=== PATIENT | male | born 1975 ===

== ENCOUNTER 2022-12-17 09:08 | Outpatient (AMB) | payer OTHER, SELFPAY ==
--- NOTE | 2022-12-17 09:15 | MHC.PC.OV ---
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 Name: Sammi [id number] Information Interpreted: non-clinical & clinical Accompanied by: Self / Same As Patient Allergies No Known Allergies Allergy (Verified 12/17/22 09:30) Medication List - Last Reconciled 12/17/22 by FLORY Peterson amlodipine 5 mg PO DAILY atenolol 50 mg PO DAILY Tobacco use date assessed: 12/17/22 Dental Screening Dental Screen Date: 12/17/22 Did you have a dental visit in the last 12 months?: No Did you have a dental problem in the last 6 months where you did not have access to dental care?: No Was dental information given to patient?: Patient has dentist HPI HPI Comments History of Present Illness Details 47-year-old Citizen Of [place]-speaking male new patient presents today to establish care. Past medical history significant for hypertension. Patient requesting refills on his amlodipine and atenolol, refill sent to patient's pharmacy. Eye exam: Recommended every couple years, referral entered. Colonoscopy: Referral inter to gastroenterology. [facility], [facility] Surgical History (Updated 12/17/22 @ 09:33 by FLORY Peterson) History of surgery on arm Family History Father Hypertension Mother Hypertension Stroke Social History Housing: House Alcohol intake: current Alcohol intake frequency: a few times a month Alcohol type: beer Patient Tobacco Use Status: Former Tobacco user Tobacco use type: Cigarette e-Cigarette/Vaping Use: Never Used Second Hand Smoke Exposure: No service: No Current occupational status: unemployed Cognitive needs: No Hearing needs: No Vision needs: No Questionnaire PHQ-9 Over the last 2 weeks, how often have you been bothered by any of the following problems? 1. Little interest or pleasure in doing things: not at all 2. Feeling down, depressed, or hopeless: not at all 3. Trouble falling or staying asleep, or sleeping too much: not at all 4. Feeling tired or having little energy: not at all 5. Poor appetite or overeating: not at all 6. Feeling bad about yourself - or that you are a failure or have let yourself or your family down: not at all 7. Trouble concentrating on things, such as reading the newspaper or watching television: not at all 8. Moving or speaking so slowly that other people could have noticed. Or the opposite - being so fidgety or restless that you have been moving around a lot more than usual: not at all 9. Thoughts that you would be better off or of hurting yourself in some way: not at all Total score: 0 Depression Screening Interpretation: Negative 65559 - PHQ-9 Billing: Yes Source: Developed by Drs. Jose Ureña, Narda Gomez, Trell Saez and colleagues, with an educational ramya from [employer]. Thrive Questionnaire Date Thrive assessed: 12/17/22 I am a: Patient What is your living situation today?: I have a steady place to live Within the past 12 months, did the food you bought not last and you didn't have the money to get more?: Never true Within the past 12 months, did you worry whether your food would run out before you got money to buy more?: Never true Do you have trouble paying for medicines?: No Do you have trouble getting transportation to medical appointments?: No Do you have trouble paying your heating and electricity bill?: No Do you have trouble taking care of your child, family member or friend?: No Do you have trouble with day-to-day activities such as bathing, preparing meals, shopping, managing finances, etc.?: No Are you currently unemployed and looking for a job?: No Are you interested in more education?: No Please select the resources that you would like help with: None Currently or been in a relationship where the following occur: no concerns reported AUDIT C Alcohol Use Questionnaire (AUDIT-C) 1. How often do you have a drink containing alcohol?: 2-4 times a month 2. How many drinks containing alcohol do you have on a typical day when you are drinking?: 1 or 2 3. How often do you have six or more drinks on one occasion?: Never Total Score: 2 JUAN-7 AMB Questionnaire JUAN-7 Date JUAN - 7 assessed: 12/17/22 Feeling nervous, anxious, or on edge: 1 = Several days Not being able to stop or control worryin = Not at all Worrying too much about different things: 1 = Several days Trouble relaxin = Not at all Being so restless that it is hard to sit still: 0 = Not at all Becoming easily annoyed or irritable: 1 = Several days Feeling afraid as if something awful might happen: 0 = Not at all Total JUAN-7 score (0-4 normal; 5-9 mild; 10-14 moderate; 15-21 severe): 3 Source: Developed by Drs. Jose Ureña, Narda Gomez, Trell Saez and colleagues, with an educational ramya from [employer]. JUAN-7 Assessment Billing JUAN-7 Assessment Tool: JUAN-7 Assessment 23097 Review of Systems Const Denies chills, Denies fatigue, Denies fever(s) and Denies poor appetite Eyes Denies no additional complaints ENT Reports Normal hearing present Card Denies chest pain, Denies syncope, Denies rapid heart rate and Denies dyspnea Resp Denies cough and Denies dyspnea GI Denies change in stool character, Denies constipation, Denies diarrhea, Denies nausea and Denies vomiting Denies dysuria, Denies urinary frequency and Denies urinary urgency Neuro Reports Normal hearing present, Denies confusion and Denies syncope Psych Denies confusion Endo Denies fatigue Physical exam (Primary Care) Vital Signs: Last Vital Signs Pulse 67 12/17/22 09:18 BP 132/90 H 12/17/22 09:18 Pulse Ox 97 12/17/22 09:18 Oxygen Delivery Method Room Air 12/17/22 09:18 BMI result Body Mass Index 31.0 Tobacco/Smoking Status: Tobacco use Status Tobacco use date assessed 12/17/22 12/17/22 09:21 Patient Tobacco Use Status Former Tobacco user 12/17/22 09:23 Tobacco use type Cigarette 12/17/22 09:23 e-Cigarette/Vaping Use Never Used 12/17/22 09:23 PHQ-9: PHQ-9 Score PHQ-9: Total score 0 12/17/22 12:23 Depression Screening Interpretation: Negative Thrive Assessment: Date of Thrive Assessment Date Thrive assessed 12/17/22 12/17/22 09:26 Currently or been in a relationship where the following occur: no concerns reported Const General: No confusion Orientation/consciousness: No confusion HENMT Head: Yes normocephalic and Yes atraumatic Ears: external ears normal and TM's normal bilaterally General nose exam: Normal external nose present and Normal nasal mucous membranes and turbinates present Face and sinus: Yes normal facial exam and Yes sinuses nontender Mouth: moist mucous membranes Throat: Yes tonsils normal Eyes Conjunctivae: conjunctivae normal Sclerae: sclerae normal Pupils: Equal, round and reactive pupils present and Pupils normal by confrontation EOM: EOMs intact bilaterally Direct Ophthalmoscopy: normal light reflex Neck Neck: Yes no lymphadenopathy and Yes supple Thyroid: Thyroid normal Chest Chest palpation & inspection: normal inspection of the chest Resp Effort & Inspection: normal respiratory effort Auscultation: clear to auscultation bilaterally, no crackles, no rhonchi and no wheezes Cardio Rate: regular rate Rhythm: regular rhythm Peripheral pulses: radial pulses present and dorsalis pedis present GI Inspection: Yes normal to inspection Palpation (GI): Soft to palpation, nontender and No hepatosplenomegaly present Auscultation: normoactive bowel sounds Skin General skin exam: no rashes or lesions noted Neuro General: No confusion Cranial nerves: Yes Equal, round and reactive pupils present and Yes Normal hearing present Cognition (Neuro): normal cognition Gait exam (Neuro): Normal gait present Motor exam (neuro): 5/5 motor strength present throughout Deep tendon reflexes (DTR's): Right brachioradialis reflex intensity grade: 2+, Left brachioradialis reflex intensity grade: 2+, Right patellar reflex intensity grade: 2+ and Left patellar reflex intensity grade: 2+ Extrem General: No edema Assessment and Plan Assessment & Plan (1) Hypertension: Code(s): I10 - Essential (primary) hypertension Plan: Continue on amlodipine and atenolol. Follow low-salt diet and exercise. Blood pressure goal less than 140/90. (2) Physical exam, annual: Code(s): Z00.00 - Encounter for general adult medical examination without abnormal findings Plan: Fasting labs ordered. 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 Plan Follow-up in 3 months. Orders: Orders Comprehensive [place]. Panel Fast Today Z13.1 - Encounter for screening for diabetes mellitus Lipid Panel Today Z13.220 - Encounter for screening for lipoid disorders TSH reflex Free T4 Today Z13.29 - Encounter for screening for other suspected endocrine disorder Complete Blood Count Auto Diff Today Z13.0 - Encounter for screening for diseases of the blood and blood-forming organs and certain disorders involving the immune mechanism Referrals Gastroenterology Referral Z12.11 - Encounter for screening for malignant neoplasm of colon Ophthalmology Referral Z01.00 - Encounter for examination of eyes and vision without abnormal findings Medications: New amlodipine 5 mg PO DAILY 30 tabs 3RF I10 - Essential (primary) hypertension atenolol 50 mg PO DAILY 30 tabs 3RF Coding Level of Care Code New Pt Prev Care 40-64y(99074) Diagnoses Hypertension I10 Physical exam, annual Z00.00 Additional Codes JUAN-7 Assessment Billing - JUAN-7 Assessment Tool: JUAN-7 Assessment 84629 ([id number])
[2022-12-17 09:18] VITALS: BP 132/90; PULSE 67; O2SAT 97; BMI 31.0
== END 2022-12-17 09:48 | disposition home or self-care (01) ==
PROVIDERS: Visit Provider Nurse Practitioner Family
DX: I10 Essential (primary) hypertension (principal); Z00.00 Encounter for general adult medical examination without abnormal findings
CPT/HCPCS: 99386

== ENCOUNTER 2022-12-17 09:50 | Outpatient (REF) | payer OTHER, SELFPAY ==
[2022-12-17 10:12] LABS: MANUAL DIFF FLAG NO
[2022-12-17 11:49] LABS: Basophils Absolute Auto 0.1 X10*3/uL (0.0-0.2); Eosinophils Absolute Auto 0.1 X10*3/uL (0.0-0.4); Eosinophils Percent Auto 1.1 % (0-4); Hematocrit 44.9 % (42.0-52.0); Hemoglobin 14.6 g/dl (14.0-18.0); Imm Gran Abs Auto 0.02 X10*3/uL (0.00-0.03); Imm Gran Pct Auto 0.3 % (0.0-0.4); Lymphocytes Absolute Auto 3.1 X10*3/uL (1.2-4.9); Lymphocytes Percent Auto 41.8 % (20-40); Mean Corpuscular HGB Conc 32.5 g/dl (31.0-36.0); Mean Corpuscular Hemoglobin 27.8 pg (27.0-33.0); Mean Corpuscular Volume 85.4 fL (80.0-98.0); Mean Platelet Volume 10.8 fL (9.4-12.4); Monocytes Absolute Auto 0.8 X10*3/uL (0.1-1.2); Monocytes Percent Auto 10.5 % (2-11); Neutrophils Absolute Auto 3.3 x10*3/uL (2.0-8.3); Neutrophils Percent Auto 45.3 % (45-73); Platelet Count 303 X10*3/uL (160-400); Red Blood Count 5.26 X10*6/uL (4.60-5.80); White Blood Count 7.3 X10*3/uL (4.8-10.8)
[2022-12-17 12:55] LABS: Alanine Aminotransferase 28 U/L (0-40); Albumin Level 4.4 g/dL (3.5-5.0); Alkaline Phosphatase 65 U/L (39-117); Anion Gap 16 (12-20); Aspartate Amino Transferase 24 U/L (5-37); Bilirubin Total 0.4 mg/dL (0.0-1.0); Blood Urea Nitrogen 16 mg/dL (9-16); Calcium 9.3 mg/dL (8.4-10.2); Carbon Dioxide 24 mmol/L (22-29); Chloride 105 mmol/L (96-108); Cholesterol 193 mg/dL; Estimated Glomerular Filt Rate > 60; Glucose Fasting 92 mg/dL (60-99); HDL Cholesterol 53 mg/dL; LDL Cholesterol Calculated 121 mg/dl; Sodium 141 mmol/L (135-145); Total Protein 7.9 g/dL (6.5-8.0); Triglycerides 95 mg/dL
[2022-12-17 13:14] LABS: TSH reflex Free T4 2.41 uIU/mL (0.32-4.0)
== END 2022-12-17 09:51 | disposition home or self-care (01) ==
LOC: HO.LAB 09:50
PROVIDERS: PCP Internal Medicine; Visit Provider Nurse Practitioner Family
DX: Z13.1 Encounter for screening for diabetes mellitus (principal); Z13.0 Encounter for screening for diseases of the blood and blood-forming organs and certain disorders involving the immune mechanism; Z13.220 Encounter for screening for lipoid disorders; Z13.29 Encounter for screening for other suspected endocrine disorder
CPT/HCPCS: 36415; 80053; 80061; 84443; 85025

== ENCOUNTER 2023-02-12 13:04 | Outpatient (AMB) | payer OTHER, SELFPAY ==
--- NOTE | 2023-02-12 13:21 | A.OFFVIS_ITS ---
Intake Vital Signs 02/12/23 13:24 Height 5 ft 6 in Weight 196 lb 3.382 oz BMI 31.7 BP 144/100 H Blood Pressure Location Lt brachial Position Sitting Pulse 78 Intake Visit Reasons: Colonoscopy Screening Intake Note: Elio presents in the office as a colonoscopy screening. CC: He states that he has never had a colonoscopy - he states that he does not have concerns but sometimes he gets a little discomfort in the epigastric region. 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 Patient was sent to us by his PCP.? This is his first colonoscopy screening.? Patient denies any gastrointestinal symptoms in the past or at present.? Denies any personal or family history of gastrointestinal disease, colon polyps, or cancer.? Denies history of difficulty with sedation or anesthesia in the past.? Negative for history of sleep apnea.? Denies any history of cardiac, renal, pulmonary, or hepatic disease.?? No history of infectious? diseases like hepatitis A, B, C, HIV or tuberculosis.? Patient is not on any anticoagulation therapy. PFSH Surgical History History of surgery on arm Family History Father Hypertension Mother Hypertension Stroke Social History Housing: House Alcohol intake: current Alcohol intake frequency: a few times a month Alcohol type: beer Patient Tobacco Use Status: Former Tobacco user Tobacco use type: Cigarette e-Cigarette/Vaping Use: Never Used Second Hand Smoke Exposure: No service: No Current occupational status: unemployed Cognitive needs: No Hearing needs: No Vision needs: No Review of Systems Const Denies weight gain and Denies weight loss ENT Reports no additional complaints, Denies dysphagia and Denies odynophagia Card Reports no additional complaints Resp Reports no additional complaints GI Denies abdominal pain, Denies belching, Denies melena, Denies bloating, Denies change in bowel habits, Denies dysphagia, Denies excessive flatus, Denies dyspepsia, Denies heartburn, Denies diarrhea, Denies loose stools, Denies nausea, Denies odynophagia and Denies vomiting Reports no additional complaints Musc Reports no additional complaints Neuro Reports no additional complaints Psych Reports no additional complaints Endo Reports no additional complaints Physical Exam Vital Signs: Last Vital Signs Pulse 78 02/12/23 13:24 BP 144/100 H 02/12/23 13:24 BMI result Body Mass Index 31.7 Const General: healthy appearing, no acute distress and well developed Nutritional Appearance: obese Orientation/consciousness: patient oriented x3 HEENT Head: Yes normal to inspection, Yes normocephalic and Yes atraumatic Face and sinus: Yes normal facial exam Mouth: Normal oral and palatal mucosa present Throat: Yes posterior oropharynx normal, Yes tonsils normal and Yes uvula midline Eyes General: appearance normal, both eyes and all related structures Neck Neck: Yes normal visual inspection, Yes full ROM and Yes trachea midline Thyroid: Thyroid normal Resp Effort & Inspection: normal respiratory effort, able to speak in complete sentences, no tracheal deviation and symmetric chest movement Auscultation: clear to auscultation bilaterally Cardio Rate: regular rate Heart sounds: S1 normal heart sound present and S2 normal heart sound present GI Inspection: Yes normal to inspection, No distended and Yes obesity Palpation (GI): Soft to palpation, not firm, nontender and No hepatosplenomegaly present Auscultation: normal bowel sounds General: Yes no CVA tenderness Back/Spine/Pelvis Back: no CVA tenderness Skin General skin exam: elasticity normal, turgor normal and dry skin Neuro General: patient oriented x3 Psych Appearance: grossly normal Mental Status: mental status grossly normal Speech and movement: Normal speech and movement present Assessment & Plan Assessment & Plan (1) Screen for colon cancer: Code(s): Z12.11 - Encounter for screening for malignant neoplasm of colon Plan: Patient denies any GI, cardiac or respiratory symptoms.? Denies any issues with anesthesia in the past.? Denies any history of sleep apnea.? No history infectious diseases in the past or present.? Not on any anticoagulation therapy.? No family or personal history of colon cancer or polyps.? Patient denies melena, hematochezia, unintentional weight loss or ribbon like stools.? Discussed at length the pre-procedure,? prep, diet & medications as well as what to expect prior, during and after the procedure.?? Stressed the importance of good bowel prep. ?Recommended the use of Vaseline or Calmoseptine OTC & baby wipes with bowel movements to promote comfort.? ?Patient verbalizes understanding and agrees to plan of care.? She was given the opportunity to ask questions and all questions answered.? We will see her after the procedure.? Coding Level of Care Code New Pt Level 3 (63126) Diagnoses Screen for colon cancer Z12.11 Time Spent (min) 40 Comment 30 minutes spent with patient and additional 10 minutes spent reviewing his records
[2023-02-12 13:24] VITALS: BP 144/100; PULSE 78; BMI 31.7
== END 2023-02-12 14:05 | disposition home or self-care (01) ==
PROVIDERS: PCP Internal Medicine; Visit Provider Nurse Practitioner Family
DX: Z12.11 Encounter for screening for malignant neoplasm of colon (principal); Z01.818 Encounter for other preprocedural examination
CPT/HCPCS: 99203

== ENCOUNTER → 2023-02-12 13:04 | Outpatient (BNVA) | payer OTHER, SELFPAY | PROVIDERS: PCP Internal Medicine; Visit Provider Nurse Practitioner Family ==

== ENCOUNTER 2023-03-14 08:16 | Outpatient (AMB) | payer OTHER, SELFPAY ==
[2023-03-14 08:28] VITALS: BP 122/80; PULSE 84; O2SAT 97; BMI 32.0
--- NOTE | 2023-03-14 08:29 | A.OFFPC_ITS ---
Vital Signs 03/14/23 08:28 Height 5 ft 6 in Weight 198 lb 4 oz BMI 32.0 BP 122/80 Blood Pressure Location Lt brachial Position Sitting Pulse 84 Pulse Source Pulse Oximeter Pulse Oximetry (%) 97 Oxygen Delivery Method Room Air Intake Visit Reasons: Hypertension Insurance Salesman Required: Yes Insurance Salesman Name: [id number] Selena Information Interpreted: non-clinical & clinical Accompanied by: Self / Same As Patient Allergies No Known Allergies Allergy (Verified 03/14/23 08:29) Tobacco use date assessed: 03/14/23 Dental Screening Dental Screen Date: 03/14/23 Did you have a dental visit in the last 12 months?: No Did you have a dental problem in the last 6 months where you did not have access to dental care?: No Was dental information given to patient?: No HPI HPI Comments History of Present Illness Details 47-year-old Yoruba-speaking male kimber cooley presents today to establish care. Past medical history significant for hypertension. Patient blood pressure below goal today 122/80. Patient reports has not yet received to call for ophthalmology appointment, referral updated. Patient reports that he also is experiencing some dysuria and also would like his prostate checked patient made aware that PSA lab was ordered back in December. Patient denies urinary frequency, hesitancy, fevers, chills and flank pain. Patient states he was unaware this, in addition to PSA blood work will add CMP and urinalysis. [facility] Surgical History History of surgery on arm Family History Father Hypertension Mother Hypertension Stroke Social History Housing: House Alcohol intake: current Alcohol intake frequency: a few times a month Alcohol type: beer Patient Tobacco Use Status: Former Tobacco user Tobacco use type: Cigarette e-Cigarette/Vaping Use: Never Used Second Hand Smoke Exposure: No service: No Current occupational status: unemployed Cognitive needs: No Hearing needs: No Vision needs: No Questionnaire PHQ-9 Over the last 2 weeks, how often have you been bothered by any of the following problems? 1. Little interest or pleasure in doing things: not at all 2. Feeling down, depressed, or hopeless: not at all 3. Trouble falling or staying asleep, or sleeping too much: not at all 4. Feeling tired or having little energy: not at all 5. Poor appetite or overeating: not at all 6. Feeling bad about yourself - or that you are a failure or have let yourself or your family down: not at all 7. Trouble concentrating on things, such as reading the newspaper or watching television: not at all 8. Moving or speaking so slowly that other people could have noticed. Or the opposite - being so fidgety or restless that you have been moving around a lot more than usual: not at all 9. Thoughts that you would be better off or of hurting yourself in some way: not at all Total score: 0 Depression Screening Interpretation: Negative Depression Screening Done: Yes 94100 - PHQ-9 Billing: Yes Source: Developed by Drs. Jose Ureña, Narda Gomez, Trell Saez and colleagues, with an educational ramya from [employer]. Thrive Questionnaire Date Thrive assessed: 03/14/23 I am a: Patient What is your living situation today?: I have a steady place to live Within the past 12 months, did the food you bought not last and you didn't have the money to get more?: Never true Within the past 12 months, did you worry whether your food would run out before you got money to buy more?: Never true Do you have trouble paying for medicines?: No Do you have trouble getting transportation to medical appointments?: No Do you have trouble paying your heating and electricity bill?: No Do you have trouble taking care of your child, family member or friend?: No Do you have trouble with day-to-day activities such as bathing, preparing meals, shopping, managing finances, etc.?: No Are you currently unemployed and looking for a job?: No Are you interested in more education?: No Please select the resources that you would like help with: None Currently or been in a relationship where the following occur: no concerns reported AUDIT C Alcohol Use Questionnaire (AUDIT-C) 1. How often do you have a drink containing alcohol?: 2-4 times a month 2. How many drinks containing alcohol do you have on a typical day when you are drinking?: 1 or 2 3. How often do you have six or more drinks on one occasion?: Never Total Score: 2 JUAN-7 AMB Questionnaire JUAN-7 Date JUAN - 7 assessed: 03/14/23 Feeling nervous, anxious, or on edge: 1 = Several days Not being able to stop or control worryin = Not at all Worrying too much about different things: 1 = Several days Trouble relaxin = Not at all Being so restless that it is hard to sit still: 0 = Not at all Becoming easily annoyed or irritable: 1 = Several days Feeling afraid as if something awful might happen: 0 = Not at all Total JUAN-7 score (0-4 normal; 5-9 mild; 10-14 moderate; 15-21 severe): 3 Source: Developed by Drs. Jose Ureña, Narda Gomez, Trell Saez and colleagues, with an educational ramya from [employer]. JUAN-7 Assessment Billing JUAN-7 Assessment Tool: JUAN-7 Assessment 54245 Review of Systems Const Denies chills, Denies fatigue, Denies fever(s) and Denies poor appetite Eyes Denies no additional complaints ENT Reports Normal hearing present Card Denies chest pain, Denies syncope, Denies rapid heart rate and Denies dyspnea Resp Denies cough and Denies dyspnea GI Denies change in stool character, Denies constipation, Denies diarrhea, Denies nausea and Denies vomiting Denies dysuria, Denies urinary frequency and Denies urinary urgency Neuro Reports Normal hearing present, Denies confusion and Denies syncope Psych Denies confusion Endo Denies fatigue Physical exam (Primary Care) Vital Signs: Last Vital Signs Pulse 84 03/14/23 08:28 BP 122/80 03/14/23 08:28 Pulse Ox 97 03/14/23 08:28 Oxygen Delivery Method Room Air 03/14/23 08:28 BMI result Body Mass Index 32.0 Tobacco/Smoking Status: Tobacco use Status Tobacco use date assessed 03/14/23 03/14/23 08:33 Patient Tobacco Use Status Former Tobacco user 03/14/23 08:33 Tobacco use type Cigarette 03/14/23 08:33 e-Cigarette/Vaping Use Never Used 03/14/23 08:33 PHQ-9: PHQ-9 Score PHQ-9: Total score 0 03/14/23 08:42 Depression Screening Interpretation: Negative Thrive Assessment: Date of Thrive Assessment Date Thrive assessed 03/14/23 03/14/23 08:33 Currently or been in a relationship where the following occur: no concerns reported Const General: No confusion Orientation/consciousness: No confusion HENMT Head: Yes normocephalic and Yes atraumatic Eyes Conjunctivae: conjunctivae normal Chest Chest palpation & inspection: normal inspection of the chest Resp Effort & Inspection: normal respiratory effort Auscultation: clear to auscultation bilaterally, no crackles, no rhonchi and no wheezes Cardio Rate: regular rate Rhythm: regular rhythm Heart sounds: S1 normal heart sound present and S2 normal heart sound present GI Inspection: Yes normal to inspection General: Yes no CVA tenderness Back/Spine/Pelvis Back: no CVA tenderness Neuro General: No confusion Cranial nerves: Yes Normal hearing present Extrem General: No edema Office Procedures Flu Questionnaire Does the patient have a severe egg allergy?: No Does the patient have severe life threatening allergies?: No Does the patient have a fever or illness today?: No Has the patient ever had Guillain-[place] Syndrome?: No Has the patient ever had any past reaction to a flu shot?: No Immunizations flu vacc [id number] 6mos up(PF) 60 mcg(15 mcgx4)/0.5 mL IM syringe Performing Provider: FLORY Peterson Performing Location: [facility] Administered by: Hair Gtz on 03/14/23 08:42 Dose Route Admin Location Dispensed Lot Number Expiration Date NDC Head Tennis Coach 0.5 mL IM Left Deltoid 0.5 mL [id number] 11/17/23 74633-318-45 [facility] VIS Given Date VIS Provided VIS Publication Date 03/14/23 Single Vaccine 20 Eligibility Eligibility Date Funding Source Not [facility] Eligible 03/14/23 Private Assessment and Plan Assessment & Plan (1) Hypertension: Code(s): I10 - Essential (primary) hypertension Plan: Continue on amlodipine and atenolol. Follow low-salt diet and exercise. Blood pressure goal less than 140/90. (2) Urinary frequency: Code(s): R35.0 - Frequency of micturition Plan: Urinalysis ordered with reflex culture. Plan Follow-up in 6 months or sooner if needed. Orders: Orders Comprehensive Met. Panel Today R35.0 - Frequency of micturition Influenza [id number] Immunization Today Z23 - Encounter for immunization UA CC w/rflx Micro + Cult Today R35.0 - Frequency of micturition Coding Level of Care Code Est Pt Level 3 (44469) Diagnoses Hypertension I10 Urinary frequency R35.0 Additional Codes JUAN-7 Assessment Billing - JUAN-7 Assessment Tool: JUAN-7 Assessment 16371 ([id number])
== END 2023-03-14 08:50 | disposition home or self-care (01) ==
PROVIDERS: PCP Nurse Practitioner Family; Visit Provider Nurse Practitioner Family
DX: I10 Essential (primary) hypertension (principal); R35.0 Frequency of micturition; Z23 Encounter for immunization
CPT/HCPCS: 90471; 90686; 99213

== ENCOUNTER 2023-03-14 09:03 | Outpatient (REF) | payer OTHER, SELFPAY ==
[2023-03-14 10:06] LABS: Appearance Urine Clear; Color Urine Yellow; Glucose Urine UA Negative (Negative); Leukocyte Esterase Urine Negative (Negative); Nitrite Urine Negative (Negative); Urine Blood Negative (Negative); Urine Ketones Negative (Negative); Urine Protein Trace mg/dL (Neg-Trace)
[2023-03-14 10:39] LABS: Alanine Aminotransferase 26 U/L (0-40); Albumin Level 4.4 g/dL (3.5-5.0); Alkaline Phosphatase 75 U/L (39-117); Anion Gap 11 (12-20); Aspartate Amino Transferase 23 U/L (5-37); Bilirubin Total 0.6 mg/dL (0.0-1.0); Blood Urea Nitrogen 15 mg/dL (9-16); Calcium 9.4 mg/dL (8.4-10.2); Carbon Dioxide 26 mmol/L (22-29); Chloride 107 mmol/L (96-108); Estimated Glomerular Filt Rate > 60; Glucose Random 104 mg/dL (60-115); Potassium 4.4 mmol/L (3.3-5.1); Sodium 140 mmol/L (135-145); Total Protein 8.1 g/dL (6.5-8.0)
[2023-03-14 10:53] LABS: PSA,Total (Free>4and<10) 0.78 ng/mL (0.00-4.00)
== END 2023-03-14 09:04 | disposition home or self-care (01) ==
LOC: HO.LAB 09:03
PROVIDERS: PCP Internal Medicine; Visit Provider Nurse Practitioner Family
DX: Z00.00 Encounter for general adult medical examination without abnormal findings (principal); Z12.5 Encounter for screening for malignant neoplasm of prostate; R35.0 Frequency of micturition
CPT/HCPCS: 36415; 80053; 81003; 84153

== ENCOUNTER 2023-09-13 09:25 | Outpatient (AMB) | payer OTHER, SELFPAY ==
--- NOTE | 2023-09-13 09:30 | MHC.PC.OV ---
Vital Signs 09/13/23 09:32 Height 5 ft 6 in Weight 203 lb 6 oz BMI 32.8 BP 130/78 Blood Pressure Location Lt brachial Position Sitting Pulse 65 Pulse Source Pulse Oximeter Pulse Oximetry (%) 97 Oxygen Delivery Method Room Air Intake Visit Reasons: HTN Follow up Intake Note: Patient is here to follow up on HTN. Retail Department Reset Required: Yes Retail Department Reset Language: Senior Patient Account Representative Name: Zion([id number]) Information Interpreted: non-clinical & clinical [place]: Not Required per policy Accompanied by: Self / Same As Patient Allergies Penicillins Adverse Reaction (Intermediate, Unverified 09/13/23 10:10) pruritus Medication List - Last Reconciled 09/13/23 by Froilan Starkey MD amlodipine 5 mg PO DAILY atenolol 50 mg PO DAILY Tobacco use date assessed: 09/13/23 Dental Screening Dental Screen Date: 09/13/23 Did you have a dental visit in the last 12 months?: No Did you have a dental problem in the last 6 months where you did not have access to dental care?: No Was dental information given to patient?: No HPI HTN Follow up HPI Details 48-year-old obese male with hypertension last seen in February 2023 having also urinary frequency. speaks georgian Angie [id number] take antibiotic PCN for Urine infection??. complains of frequency but 1-2 at night and discussed that this is normal. 20 days ago was told UTI PAtient admits to self diagnosis. [facility] Surgical History (Updated 09/13/23 @ 10:13 by Froilan Starkey MD) History of surgery on arm Family History (Updated 09/13/23 @ 10:15 by Froilan Starkey MD) Father Hypertension Mother Hypertension Stroke Myocardial infarct Paternal Grandfather Stomach cancer Social History (Updated 09/13/23 @ 10:19 by Froilan Starkey MD) Housing: House Alcohol intake: current Alcohol intake frequency: a few times a month Alcohol type: beer Comment: once a month 5 -6 drinks Patient Tobacco Use Status: Former Tobacco user Tobacco use type: Cigarette Years Smoked: stopped 2020 smoked for 11 years 2008- apck a day after 2013 1-2 a day e-Cigarette/Vaping Use: Never Used Second Hand Smoke Exposure: No service: No Current occupational status: unemployed Cognitive needs: No Hearing needs: No Vision needs: No Questionnaire PHQ-9 Over the last 2 weeks, how often have you been bothered by any of the following problems? 1. Little interest or pleasure in doing things: not at all 2. Feeling down, depressed, or hopeless: not at all 3. Trouble falling or staying asleep, or sleeping too much: not at all 4. Feeling tired or having little energy: not at all 5. Poor appetite or overeating: not at all 6. Feeling bad about yourself - or that you are a failure or have let yourself or your family down: not at all 7. Trouble concentrating on things, such as reading the newspaper or watching television: not at all 8. Moving or speaking so slowly that other people could have noticed. Or the opposite - being so fidgety or restless that you have been moving around a lot more than usual: not at all 9. Thoughts that you would be better off or of hurting yourself in some way: not at all Total score: 0 Depression Screening Interpretation: Negative Depression Screening Done: Yes Source: Developed by Drs. Jose Ureña, Narda Gomez, Trell Saez and colleagues, with an educational ramya from [employer]. Thrive Questionnaire Date Thrive assessed: 09/13/23 I am a: Patient What is your living situation today?: I have a steady place to live Within the past 12 months, did the food you bought not last and you didn't have the money to get more?: Never true Within the past 12 months, did you worry whether your food would run out before you got money to buy more?: Never true Do you have trouble paying for medicines?: No Do you have trouble getting transportation to medical appointments?: No Do you have trouble paying your heating and electricity bill?: No Do you have trouble taking care of your child, family member or friend?: No Do you have trouble with day-to-day activities such as bathing, preparing meals, shopping, managing finances, etc.?: No Are you currently unemployed and looking for a job?: No Are you interested in more education?: No Currently or been in a relationship where the following occur: no concerns reported THRIVE Score: 0 AUDIT C Alcohol Use Questionnaire (AUDIT-C) 1. How often do you have a drink containing alcohol?: 2-4 times a month 2. How many drinks containing alcohol do you have on a typical day when you are drinking?: 1 or 2 Total Score: 2 JUAN-7 AMB Questionnaire JUAN-7 Date JUAN - 7 assessed: 09/13/23 Feeling nervous, anxious, or on edge: 0 = Not at all Not being able to stop or control worryin = Not at all Worrying too much about different things: 0 = Not at all Trouble relaxin = Not at all Being so restless that it is hard to sit still: 0 = Not at all Becoming easily annoyed or irritable: 0 = Not at all Feeling afraid as if something awful might happen: 0 = Not at all Total JUAN-7 score (0-4 normal; 5-9 mild; 10-14 moderate; 15-21 severe): 0 Source: Developed by Drs. Jose Ureña, Narda Gomez, Trell Saez and colleagues, with an educational ramya from [employer]. Physical exam (Primary Care) Vital Signs: Last Vital Signs Pulse 65 09/13/23 09:32 BP 130/78 09/13/23 09:32 Pulse Ox 97 09/13/23 09:32 Oxygen Delivery Method Room Air 09/13/23 09:32 BMI result Body Mass Index 32.8 Tobacco/Smoking Status: Tobacco use Status Tobacco use date assessed 09/13/23 09/13/23 09:43 Patient Tobacco Use Status Former Tobacco user 09/13/23 09:43 Tobacco use type Cigarette 09/13/23 09:43 e-Cigarette/Vaping Use Never Used 09/13/23 09:43 PHQ-9: PHQ-9 Score PHQ-9: Total score 0 09/13/23 09:43 Depression Screening Interpretation: Negative Thrive Assessment: Date of Thrive Assessment Date Thrive assessed 09/13/23 09/13/23 09:43 Currently or been in a relationship where the following occur: no concerns reported Const General: alert; No acute distress Eyes Conjunctivae: conjunctivae normal Resp Auscultation: clear to auscultation bilaterally Cardio Rate: regular rate Rhythm: regular rhythm GI Inspection: Yes normal to inspection Extrem General: Yes normal to inspection and No edema Assessment and Plan Assessment & Plan (1) Hypertension: Code(s): I10 - Essential (primary) hypertension Plan: Continue with blood pressure medication. Decrease salt intake and exercise presently on amlodipine 5 mg once a day and atenolol 50 mg once a day (2) Obesity (BMI 30.0-34.9): Code(s): E66.9 - Obesity, unspecified Plan: Diet and exercise (3) Impaired glucose tolerance: Code(s): R73.02 - Impaired glucose tolerance (oral) Plan: Decrease the amount of carbohydrate intake, pasta, bread, rice and potatoes are all sugar and that is aside from all the sweet stuff, remember that fruits are good but they are Sweet also. Medications: Refilled amlodipine 5 mg PO DAILY 90 tabs 1RF I10 - Essential (primary) hypertension atenolol 50 mg PO DAILY 90 tabs 1RF I10 - Essential (primary) hypertension Coding Level of Care Code Est Pt Level 4 (32130) Diagnoses Hypertension I10 Obesity (BMI 30.0-34.9) E66.9 Impaired glucose tolerance R73.02
[2023-09-13 09:32] VITALS: BP 130/78; PULSE 65; O2SAT 97; BMI 32.8
== END 2023-09-13 10:33 | disposition home or self-care (01) ==
PROVIDERS: PCP Internal Medicine; Visit Provider Internal Medicine
DX: I10 Essential (primary) hypertension (principal); E66.9 Obesity, unspecified; R73.02 Impaired glucose tolerance (oral); Z68.32 Body mass index [BMI] 32.0-32.9, adult
CPT/HCPCS: 99214

== ENCOUNTER 2023-09-23 07:20 | Day surgery (SDC) | payer OTHER, SELFPAY ==
[2023-09-19 11:01] VITALS: BMI 32.8
[2023-09-19 11:02] VITALS: BMI 32.8
--- NOTE | 2023-09-20 12:19 | HO.ANESPROP2 ---
Documented by User: Mellisa Stone NP 09/20/23 12:19 HPI - Anesthesia Eval Consult details Narrative: 48yo M for Colonoscopy PMFSH Active Problems Active Problems: All Active Problems Obesity (BMI 30.0-34.9) (Acute) Urinary frequency (Acute) Hypertension (Acute) Past Medical History Medical History HTN (hypertension) Family History Family History Father Hypertension Mother Hypertension Stroke Myocardial infarct Paternal Grandfather Stomach cancer Surgical History Surgical History History of surgery on arm Social History Social History Housing: House Alcohol intake: current Alcohol intake frequency: a few times a month Alcohol type: beer Comment: once a month 5 -6 drinks Patient Tobacco Use Status: Former Tobacco user Tobacco use type: Cigarette Years Smoked: stopped 2020 smoked for 11 years 2008- apck a day after 2013 1-2 a day e-Cigarette/Vaping Use: Never Used Second Hand Smoke Exposure: No Advance Directives: No (unknown) Advance Directives Information Provided: Yes Advance Directives on File: No service: No Current occupational status: unemployed Cognitive needs: No Hearing needs: No Vision needs: No Meds Allergies Allergy/AdvReac Type Severity Reaction Status Date / Time Penicillins AdvReac Intermediate pruritus Verified 09/23/23 07:27 Exam Height,Weight and Vital Signs: Height 5 ft 6 in Weight 92.079 kg Assessment and Plan Assessment Anesthesia Assessment: Chart Reviewed Documented by User: Yanelis Pretty MD 09/23/23 08:28 PMF Past Medical History Medical History HTN (hypertension) Family History Family History Father Hypertension Mother Hypertension Stroke Myocardial infarct Paternal Grandfather Stomach cancer Family history of problems with anesthesia: No Surgical History Surgical History History of surgery on arm History of Problems with Anesthesia: No Social History Social History Housing: House Alcohol intake: current Alcohol intake frequency: a few times a month Alcohol type: beer Comment: once a month 5 -6 drinks Patient Tobacco Use Status: Former Tobacco user Tobacco use type: Cigarette Years Smoked: stopped 2020 smoked for 11 years apck a day after 2013 1-2 a day e-Cigarette/Vaping Use: Never Used Second Hand Smoke Exposure: No Advance Directives: No (unknown) Advance Directives Information Provided: Yes Advance Directives on File: No service: No Current occupational status: unemployed Cognitive needs: No Hearing needs: No Vision needs: No Meds Allergies Allergy/AdvReac Type Severity Reaction Status Date / Time Penicillins AdvReac Intermediate pruritus Verified 09/23/23 07:27 Exam Airway Mallampati Class: III TM Dist: <=3cm Neck ROM: Limited Heart: rrr Lungs: cta Assessment and Plan Assessment Anesthesia Assessment: Anesthesia Plan Discussed Final Anesthetic Review Family History of Problems with Anesthesia: No History of Problems with Anesthesia: No NPO: Yes ASA Class: III Final Preanesthetic Review: No Changes in Pt Med Stat, Meds/Allgs Chart Reviewed, Consent Obtained/Reviewed and Anes Risks/Benef Reviewed Patient Risk: Intermediate Procedure Risk: Low Anesthetic Plan Anesthetic Plan: MAC: Disposition: Standard PACU Documented by User: Melia Jarrett MD 09/23/23 08:30 PMFSH Past Medical History Medical History HTN (hypertension) Family History Family History Father Hypertension Mother Hypertension Stroke Myocardial infarct Paternal Grandfather Stomach cancer Surgical History Surgical History History of surgery on arm Social History Social History Housing: House Alcohol intake: current Alcohol intake frequency: a few times a month Alcohol type: beer Comment: once a month 5 -6 drinks Patient Tobacco Use Status: Former Tobacco user Tobacco use type: Cigarette Years Smoked: stopped 2020 smoked for 11 years 2008- apck a day after 2013 1-2 a day e-Cigarette/Vaping Use: Never Used Second Hand Smoke Exposure: No Advance Directives: No (unknown) Advance Directives Information Provided: Yes Advance Directives on File: No service: No Current occupational status: unemployed Cognitive needs: No Hearing needs: No Vision needs: No Meds Allergies Allergy/AdvReac Type Severity Reaction Status Date / Time Penicillins AdvReac Intermediate pruritus Verified 09/23/23 07:27 Exam Airway Mallampati Class: II TM Dist: >3cm Neck ROM: Full Heart: rrrr
--- NOTE | 2023-09-23 07:09 | MHC.SHP ---
Pre-Procedural Eval Section A - 24 Hr Update-Section A only Date of Service: 09/23/23 The patient is an INPATIENT: No The patient has been examined within 24 hours of the surgical procedure. The History & Physical has been completed within 30 days and I have reviewed it.: No Section B - Complete if H&P > 30 days Chief Complaint: Colon cancer screening Relevant Family History (Specify if Yes): No Relevant Social History: Tobacco Use (Former smoker) Present Medications: see Short Stay Collaborative assessment Medical History: Significant History (Hypertension, obesity) History of Previous Operations: Relevant previous surgery/procedure and date(s) (History of surgery on the arm) Allergies: Allergies Allergy/AdvReac Type Severity Reaction Status Date / Time Penicillins AdvReac Intermediate pruritus Unverified 09/13/23 10:10 Review of Systems Sugical H&P ROS: Negative: Constitution, Cardiovascular, Respiratory and Gastrointestinal Exam Surgical H&P Exam: Normal: Heart, Normal: Lungs, Normal: Extremities and Normal: Abdomen Plan Diagnosis/Plan: Unchanged I have reviewed the history and physical and performed a pertinent physical examination on my patient. No changes have occurred unless specified. Time Spent With Patient Time: Total time managing care of this patient today ____ minutes.
[2023-09-23] MEDS: Lactated Ringers 1,000 ML 100 ML IVCONT (07:42)
[2023-09-23 07:51] VITALS: BP 132/96; PULSE 88; RESP 18; TEMP 36.7; O2SAT 98
[2023-09-23 08:17] VITALS: BMI 32.3
--- NOTE | 2023-09-23 08:33 | HO.OPN-COLON ---
Colonoscopy Operative Note Operative Note Date of Service: 09/23/23 Narrative: COLONOSCOPY TILL CECUM WITH BIOPSIES Pre-op diagnosis: Colon cancer screening (First colonoscopy). Post-op diagnosis:? Colon polyps, Diverticulosis, hemorrhoids Endoscopist:? Ray Barr MD Anesthesia:?MAC Consent: Indications for the procedure and potential complications of bleeding, perforation, reaction to medications and missed diagnosis were discussed with the patient and informed consent was obtained. Instrument: Olympus PCF H 190 L variable stiffness pediatric colonoscope Monitoring: Vital signs and clinical assessment, intermittent blood pressure monitoring, continuous EKG monitoring, Pulse oximetry and Carbon Dioxide monitoring were done throughout the procedure. Please see anesthesia flowsheet. Colon withdrawl time was 23 minutes. Procedure: The patient was placed in the left lateral decubitis position and pre-procedure medications were administered. After a digital rectal examination of the ano-rectum, the video colonoscope was inserted into the rectum and advanced through the colon to the cecum. The colonoscope was slowly withdrawn in a retrograde panoramic fashion and the colon mucosa was carefully examined including a retroflexed view of the rectum. Findings and interventions are described below. Procedure Difficulty: LLQ pressure was applied to intubate the cecum Findings: Terminal Ileum: Not evaluated Cecum: Normal Ascending Colon: Scattered moderate diverticulosis throughout the entire colon Transverse Colon: Two 4-5 mm sessile polyps - removed with a cold biopsy Scattered moderate diverticulosis throughout the entire colon Descending Colon: Scattered moderate diverticulosis throughout the entire colon Sigmoid Colon: Moderate diverticulosis Rectum: Normal Ano-rectum: Moderate internal hemorrhoids Colon preparation: Good after some irrigation. [place] Bowel Preparation Scale Right colon; 2 Transverse colon: 2 Left colon; 2 (0 = Unprepared colon segment with mucosa not seen due to solid stool that cannot be cleared. 1 = Portion of mucosa of the colon segment seen, but other areas of the colon segment not well seen due to staining, residual stool and/or opaque liquid. 2 = Minor amount of residual staining, small fragments of stool and/or opaque liquid, but mucosa of colon segment seen well. 3 = Entire mucosa of colon segment seen well with no residual staining, small fragments of stool or opaque liquid) Impression and Post Procedure Diagnosis: Colonoscopy Findings: Two small polyps were removed Moderate diverticulosis seen in the entire colon Moderate hemorrhoids on retroflexed exam. Plan: Pt has a FU appointment on 10/07/23 with Jennifer Garcia NP Repeat Colonoscopy in 5 years if polyps are adenomatous and 10 year if polyps are hyperplastic. Patient was given a summary of colonoscopy findings with relevant handouts in the discharge area.
[2023-09-23 09:08] VITALS: BP 110/76; PULSE 65; RESP 16; TEMP 36.1; O2SAT 97
[2023-09-23 09:23] VITALS: BP 128/89; PULSE 69; RESP 15; O2SAT 95
[2023-09-23 09:37] VITALS: BP 139/96; PULSE 62; RESP 17; TEMP 36.4; O2SAT 97
== END 2023-09-23 10:11 | disposition home or self-care (01) ==
PROVIDERS: PCP Internal Medicine; Visit Provider Internal Medicine Gastroenterology
PROC: 0DJD8ZZ Inspection of Lower Intestinal Tract, Via Natural or Artificial Opening Endoscopic (ICD-10-PCS; CPT 45378; principal; 2023-09-23 08:30)
DX: Z12.11 Encounter for screening for malignant neoplasm of colon (principal); K63.5 Polyp of colon; K57.30 Diverticulosis of large intestine without perforation or abscess without bleeding; K64.8 Other hemorrhoids; I10 Essential (primary) hypertension
CPT/HCPCS: 45380; 88305; J2704

== ENCOUNTER → 2023-09-23 07:20 | Outpatient (BNV) | payer OTHER, SELFPAY | PROVIDERS: PCP Internal Medicine; Visit Provider Internal Medicine Gastroenterology | DX: Z12.11 Encounter for screening for malignant neoplasm of colon (principal); K63.5 Polyp of colon; K57.90 Diverticulosis of intestine, part unspecified, without perforation or abscess without bleeding; K64.8 Other hemorrhoids | CPT/HCPCS: 45380 ==

== ENCOUNTER 2024-01-29 09:33 | Outpatient (AMB) | payer OTHER, SELFPAY ==
[2024-01-29 09:35] VITALS: BP 122/90; PULSE 61; O2SAT 98; BMI 31.0
--- NOTE | 2024-01-29 09:35 | A.OFFPC_ITS ---
Vital Signs 01/29/24 09:35 Height 5 ft 6 in Weight 192 lb BMI 31.0 BP 122/90 H Blood Pressure Location Lt brachial Position Sitting Pulse 61 Pulse Source Pulse Oximeter Pulse Oximetry (%) 98 Oxygen Delivery Method Room Air Intake Visit Reasons: Annual P.E Library Services Assistant Required: Yes Library Services Assistant Language: Wolof Allergies Penicillins Adverse Reaction (Intermediate, Verified 01/29/24 09:59) pruritus Medication List - Last Reconciled 01/29/24 by Bernadette Jiang PA-C amlodipine 5 mg PO DAILY atenolol 50 mg PO DAILY Tobacco use date assessed: 09/13/23 Dental Screening Dental Screen Date: 09/13/23 Did you have a dental visit in the last 12 months?: No Did you have a dental problem in the last 6 months where you did not have access to dental care?: No HPI Annual P.E HPI Details 48-year-old obese male with hypertension last seen by Dr. Starkey coming in for annual physical. Patient completed colonoscopy 09/24/2023 follow up in 10 years. 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 Patient states he was taking both blood pressure medications however did stopped taking the atenolol as he only had a 30 day supply and has not had it since. He also mentions he has occasional small bumps on the tip of his penis that are painful and last about 1 week before resolving spontaneously for the last 2-3 years. The vesicles do rupture and crusted over and he uses [id number] cream that he buys in the [facility] and is not available in the [place] for treatment. [facility] Medical History HTN (hypertension) Surgical History History of surgery on arm Family History Father Hypertension Mother Hypertension Stroke Myocardial infarct Paternal Grandfather Stomach cancer Social History Housing: House Alcohol intake: current Alcohol intake frequency: a few times a month Alcohol type: beer Comment: once a month 5 -6 drinks Patient Tobacco Use Status: Former Tobacco user Tobacco use type: Cigarette Years Smoked: stopped 2020 smoked for 11 years 2008- apck a day after 2013 1-2 a day e-Cigarette/Vaping Use: Never Used Second Hand Smoke Exposure: No service: No Current occupational status: unemployed Cognitive needs: No Hearing needs: No Vision needs: No Questionnaire PHQ-9 Over the last 2 weeks, how often have you been bothered by any of the following problems? 1. Little interest or pleasure in doing things: not at all 2. Feeling down, depressed, or hopeless: not at all 3. Trouble falling or staying asleep, or sleeping too much: not at all 4. Feeling tired or having little energy: not at all 5. Poor appetite or overeating: not at all 6. Feeling bad about yourself - or that you are a failure or have let yourself or your family down: not at all 7. Trouble concentrating on things, such as reading the newspaper or watching television: not at all 8. Moving or speaking so slowly that other people could have noticed. Or the opposite - being so fidgety or restless that you have been moving around a lot more than usual: not at all 9. Thoughts that you would be better off or of hurting yourself in some way: not at all Total score: 0 Depression Screening Interpretation: Negative Depression Screening Done: Yes Source: Developed by Drs. Jose Ureña, Narda Gomez, Trell Saez and colleagues, with an educational ramya from [employer]. Thrive Questionnaire Date Thrive assessed: 09/13/23 AUDIT C Alcohol Use Questionnaire (AUDIT-C) 1. How often do you have a drink containing alcohol?: 2-4 times a month 2. How many drinks containing alcohol do you have on a typical day when you are drinking?: 1 or 2 3. How often do you have six or more drinks on one occasion?: Never Total Score: 2 JUAN-7 AMB Questionnaire JUAN-7 Date JUAN - 7 assessed: 09/13/23 Feeling nervous, anxious, or on edge: 0 = Not at all Not being able to stop or control worryin = Not at all Worrying too much about different things: 0 = Not at all Trouble relaxin = Not at all Being so restless that it is hard to sit still: 0 = Not at all Becoming easily annoyed or irritable: 0 = Not at all Feeling afraid as if something awful might happen: 0 = Not at all Total JUAN-7 score (0-4 normal; 5-9 mild; 10-14 moderate; 15-21 severe): 0 Source: Developed by Drs. Jose Ureña, Narda Gomez, Trell Saez and colleagues, with an educational ramya from [employer]. JUAN-7 Assessment Billing JUAN-7 Assessment Tool: JUAN-7 Assessment 19133 Review of Systems Const Denies body aches, Denies fatigue, Denies fever(s), Denies frequent falls, Reports headache(s) (occasional) and Denies weakness Eyes Reports no additional complaints and Denies change in vision ENT Denies dysphagia, Denies dizziness, Denies facial pain, Reports headache(s) (occasional), Denies nasal congestion and Denies odynophagia Card Denies chest pain, Denies syncope, Denies irregular heart rhythm, Denies leg edema, Denies lightheadedness and Denies dyspnea Resp Denies cough and Denies dyspnea GI Denies constipation, Denies dysphagia, Denies dyspepsia, Denies diarrhea, Denies nausea, Denies odynophagia and Denies vomiting Reports genital lesions (As per HPI), Denies dysuria, Denies urinary frequency, Denies urinary hesitancy and Denies urinary urgency Musc Denies back pain and Denies myalgias Skin/Breast Details: bump on penis Neuro Denies dizziness, Denies syncope, Denies frequent falls, Reports headache(s) (occasional) and Denies weakness Psych Reports no additional complaints Endo Denies fatigue Physical exam (Primary Care) Vital Signs: Last Vital Signs Pulse 61 01/29/24 09:35 BP 122/90 H 01/29/24 09:35 Pulse Ox 98 01/29/24 09:35 Oxygen Delivery Method Room Air 01/29/24 09:35 BMI result Body Mass Index 31.0 Tobacco/Smoking Status: Tobacco use Status Tobacco use date assessed 09/13/23 01/29/24 09:36 Patient Tobacco Use Status Former Tobacco user 01/29/24 09:36 Tobacco use type Cigarette 01/29/24 09:36 e-Cigarette/Vaping Use Never Used 01/29/24 09:36 PHQ-9: PHQ-9 Score PHQ-9: Total score 0 01/29/24 09:44 Depression Screening Interpretation: Negative Thrive Assessment: Date of Thrive Assessment Date Thrive assessed 09/13/23 01/29/24 09:36 Const General: cooperative, healthy appearing, comfortable and no acute distress Orientation/consciousness: patient oriented x3 HENMT Head: Yes normocephalic Ears: hearing grossly normal bilaterally, external ears normal, TM's normal bilaterally and EAC's normal General nose exam: Normal external nose present Face and sinus: Yes normal facial exam and Yes sinuses nontender Mouth: Normal oral and palatal mucosa present and tongue normal Throat: Yes posterior oropharynx normal Eyes General: appearance normal, both eyes and all related structures Conjunctivae: conjunctivae normal Pupils: Equal, round and reactive pupils present EOM: EOMs intact bilaterally and No Nystagmus present Neck Neck: Yes normal visual inspection, Yes full ROM and Yes no lymphadenopathy Chest Chest palpation & inspection: normal inspection of the chest Resp Effort & Inspection: normal respiratory effort Auscultation: clear to auscultation bilaterally, no crackles, no rales, no rhonchi, no wheezes and breath sounds present Cardio Rate: regular rate Rhythm: regular rhythm Peripheral pulses: radial pulses present and dorsalis pedis present GI Inspection: Yes normal to inspection and No Abdominal wall edema Palpation (GI): Soft to palpation, not firm and nontender Auscultation: normal bowel sounds Rectal Exam - Male: Yes deferred Other: Single bump on tip of penis without redness or pain does not appear to be ves icular General: Yes no CVA tenderness Back/Spine/Pelvis Back: no CVA tenderness Skin General skin exam: no rashes or lesions noted Neuro General: patient oriented x3 Cranial nerves: Yes Equal, round and reactive pupils present, Yes Midline tongue present, Yes Ability to bilaterally elevate shoulders present and No Nystagmus present Gait exam (Neuro): Normal gait present Extrem General: Yes normal to inspection, Yes full ROM, No no pedal edema and No edema Psych Speech and movement: Normal speech and movement present Affect: normal affect Insight: Good insight present (Psych) Judgement: Good judgement present (Psych) Assessment and Plan Assessment & Plan (1) Obesity (BMI 30.0-34.9): Code(s): E66.9 - Obesity, unspecified Plan: Encouraged healthy diet and regular exercise. (2) Hypertension: Code(s): I10 - Essential (primary) hypertension Plan: Continue to take both atenolol and amlodipine as prescribed. Blood pressure mildly elevated in the office today most likely due to lack of atenolol for the last several months. We will follow up in 3 months to review labs and retake blood pressure at that time. Avoid salt intake and encourage healthy diet and regular exercise. (3) Annual physical exam: Code(s): Z00.00 - Encounter for general adult medical examination without abnormal findings Plan: Patient is up-to-date on all recommended routine screenings and vaccinations for his age. Updated blood work ordered today and we will follow up at next appointment. (4) Penile lump: Code(s): N48.89 - Other specified disorders of penis Plan: Based on patient's history the bumps are most consistent with HSV and we will order for blood test to confirm. On exam unclear etiology of the bumps and we will refer to Dermatology in the event HSV is negative. Orders: Orders Complete Blood Count Auto Diff Today Z00.00 - Encounter for general adult medical examination without abnormal findings Lipid Panel Today Z00.00 - Encounter for general adult medical examination without abnormal findings TSH reflex Free T4 Today Z00.00 - Encounter for general adult medical examination without abnormal findings Prostate Specific Antigen Scr Today Z00.00 - Encounter for general adult medical examination without abnormal findings Vitamin B12 and Folate Today Z00.00 - Encounter for general adult medical e xamination without abnormal findings HSV I and II,IHC Today N48.89 - Other specified disorders of penis Comprehensive Met. Panel Today Z00.00 - Encounter for general adult medical examination without abnormal findings Thyroid Stimulating Hormone Today Z00.00 - Encounter for general adult medical examination without abnormal findings Vitamin D 25-OH (D2 and D3) Today Z00.00 - Encounter for general adult medical examination without abnormal findings UA CC w/rflx Micro + Cult Today Z00.00 - Encounter for general adult medical examination without abnormal findings Referrals Dermatology Referral N48.89 - Other specified disorders of penis Medications: Refilled atenolol 50 mg PO DAILY 90 tabs 1RF I10 - Essential (primary) hypertension amlodipine 5 mg PO DAILY 90 tabs 1RF I10 - Essential (primary) hypertension Coding Level of Care Code Est Pt Level 3 (70896) Est Pt Prev Care 40-64y(14625) Diagnoses Obesity (BMI 30.0-34.9) E66.9 Hypertension I10 Annual physical exam Z00.00 Penile lump N48.89 Additional Codes JUAN-7 Assessment Billing - JUAN-7 Assessment Tool: JUAN-7 Assessment 90817 ([id number])
== END 2024-01-29 10:25 | disposition home or self-care (01) ==
LOC: HO.HMGH 09:33
PROVIDERS: PCP Internal Medicine
DX: Z00.00 Encounter for general adult medical examination without abnormal findings (principal); N48.89 Other specified disorders of penis; E66.9 Obesity, unspecified; Z68.31 Body mass index [BMI] 31.0-31.9, adult; I10 Essential (primary) hypertension
CPT/HCPCS: 99213; 99396

== ENCOUNTER 2024-01-29 10:30 | Outpatient (REF) | payer OTHER, SELFPAY ==
[2024-01-29 10:54] LABS: MANUAL DIFF FLAG NO
[2024-01-29 11:38] LABS: Basophils Percent Auto 0.5 % (0-2); Eosinophils Absolute Auto 0.1 X10*3/uL (0.0-0.4); Eosinophils Percent Auto 0.7 % (0-4); Hematocrit 44.5 % (42.0-52.0); Hemoglobin 14.2 g/dl (14.0-18.0); Imm Gran Abs Auto 0.03 X10*3/uL (0.00-0.03); Imm Gran Pct Auto 0.4 % (0.0-0.4); Lymphocytes Absolute Auto 2.6 X10*3/uL (1.2-4.9); Lymphocytes Percent Auto 35.5 % (20-40); Mean Corpuscular HGB Conc 31.9 g/dl (31.0-36.0); Mean Corpuscular Hemoglobin 26.8 pg (27.0-33.0); Mean Platelet Volume 10.8 fL (9.4-12.4); Monocytes Absolute Auto 0.6 X10*3/uL (0.1-1.2); Monocytes Percent Auto 7.5 % (2-11); Neutrophils Absolute Auto 4.1 x10*3/uL (2.0-8.3); Neutrophils Percent Auto 55.4 % (45-73); Platelet Count 280 X10*3/uL (160-400); Red Cell Distribution Width 14.6 % (11.0-16.0); White Blood Count 7.4 X10*3/uL (4.8-10.8)
[2024-01-29 12:37] LABS: Appearance Urine Clear; Color Urine Yellow; Glucose Urine UA Negative (Negative); Leukocyte Esterase Urine Negative (Negative); Nitrite Urine Negative (Negative); PH 6.5 (5.0-9.0); Urine Blood Negative (Negative); Urine Ketones Negative (Negative); Urine Protein Negative (Neg-Trace)
[2024-01-29 12:40] LABS: Alanine Aminotransferase 26 U/L (0-40); Albumin Level 4.5 g/dL (3.5-5.0); Alkaline Phosphatase 73 U/L (39-117); Anion Gap 13 (12-20); Aspartate Amino Transferase 25 U/L (5-37); Bilirubin Total 0.5 mg/dL (0.0-1.0); Blood Urea Nitrogen 13 mg/dL (9-16); Calcium 9.9 mg/dL (8.4-10.2); Carbon Dioxide 28 mmol/L (22-29); Chloride 106 mmol/L (96-108); Cholesterol 180 mg/dL (<200); Estimated Glomerular Filt Rate > 60; Glucose Random 101 mg/dL (60-115); HDL Cholesterol 58 mg/dL (>40); LDL Cholesterol Calculated 107 mg/dL (<100); Potassium 4.8 mmol/L (3.3-5.1); Sodium 142 mmol/L (135-145); Triglycerides 76 mg/dL (<150)
[2024-01-29 12:45] LABS: TSH reflex Free T4 1.78 uIU/mL (0.32-4.0); Thyroid Stimulating Hormone 1.78 uIU/mL (0.32-4.0)
[2024-01-29 12:49] LABS: Prostate Specific Antigen Scr 0.81 ng/mL (<0.05-4.0); Vitamin B12 684 pg/mL (200-900)
[2024-02-03 16:23] LABS: Vitamin D 25-OH, D2 <4 ng/mL; Vitamin D 25-OH, D3 30 ng/mL; Vitamin D 25-OH, Total 30 ng/mL (30-100)
== END 2024-01-29 10:31 | disposition home or self-care (01) ==
LOC: HO.LAB 10:30
DX: Z00.00 Encounter for general adult medical examination without abnormal findings (principal)
CPT/HCPCS: 36415; 80053; 80061; 81003; 82306; 82607; 82746; 84153; 84443; 85025

== ENCOUNTER 2024-07-27 14:03 | Outpatient (AMB) | payer OTHER, SELFPAY ==
[2024-07-27 14:05] VITALS: BP 120/78; PULSE 93; O2SAT 99; BMI 33.3
--- NOTE | 2024-07-27 14:05 | MHC.PC.OV ---
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 complains urinating a lot, states having gases problem with erection. concern on prostate. concern on masses . [facility] Medical History HTN (hypertension) Surgical History History of surgery on arm Family History Father Hypertension Mother Hypertension Stroke Myocardial infarct Paternal Grandfather Stomach cancer Social History Housing: House Alcohol intake: current Alcohol intake frequency: a few times a month Alcohol type: beer Comment: once a month 5 -6 drinks Patient Tobacco Use Status: Former Tobacco user Tobacco use type: Cigarette Years Smoked: stopped 2020 smoked for 11 years 2008- apck a day after 2013 1-2 a day e-Cigarette/Vaping Use: Never Used Second Hand Smoke Exposure: No service: No Current occupational status: unemployed Cognitive needs: No Hearing needs: No Vision needs: No Questionnaire PHQ-9 Over the last 2 weeks, how often have you been bothered by any of the following problems? 1. Little interest or pleasure in doing things: not at all 2. Feeling down, depressed, or hopeless: not at all 3. Trouble falling or staying asleep, or sleeping too much: not at all 4. Feeling tired or having little energy: not at all 5. Poor appetite or overeating: not at all 6. Feeling bad about yourself - or that you are a failure or have let yourself or your family down: not at all 7. Trouble concentrating on things, such as reading the newspaper or watching television: not at all 8. Moving or speaking so slowly that other people could have noticed. Or the opposite - being so fidgety or restless that you have been moving around a lot more than usual: not at all 9. Thoughts that you would be better off or of hurting yourself in some way: not at all Total score: 0 Depression Screening Interpretation: Negative Depression Screening Done: Yes Source: Developed by Drs. Jose Urñea, Narda Gomez, Trell Saez and colleagues, with an educational ramya from [employer]. Thrive Questionnaire Date Thrive assessed: 07/27/24 I am a: Patient What is your living situation today?: I have a steady place to live Within the past 12 months, did the food you bought not last and you didn't have the money to get more?: Never true Within the past 12 months, did you worry whether your food would run out before you got money to buy more?: Never true Do you have trouble paying for medicines?: No Do you have trouble getting transportation to medical appointments?: No Do you have trouble paying your heating and electricity bill?: No Do you have trouble taking care of your child, family member or friend?: No Do you have trouble with day-to-day activities such as bathing, preparing meals, shopping, managing finances, etc.?: No Are you currently unemployed and looking for a job?: No Are you interested in more education?: No Please select the resources that you would like help with: None Currently or been in a relationship where the following occur: No concerns reported THRIVE Score: 0 AUDIT C Alcohol Use Questionnaire (AUDIT-C) 1. How often do you have a drink containing alcohol?: 2-4 times a month 2. How many drinks containing alcohol do you have on a typical day when you are drinking?: 1 or 2 3. How often do you have six or more drinks on one occasion?: Never Total Score: 2 JUAN-7 AMB Questionnaire JUAN-7 Date JUAN - 7 assessed: 07/27/24 Feeling nervous, anxious, or on edge: 0 = Not at all Not being able to stop or control worryin = Not at all Worrying too much about different things: 0 = Not at all Trouble relaxin = Not at all Being so restless that it is hard to sit still: 0 = Not at all Becoming easily annoyed or irritable: 0 = Not at all Feeling afraid as if something awful might happen: 0 = Not at all Total JUAN-7 score (0-4 normal; 5-9 mild; 10-14 moderate; 15-21 severe): 0 Source: Developed by Drs. Jose Ureña, Narda Gomez, Trell Saez and colleagues, with an educational ramya from [employer]. JUAN-7 Assessment Billing JUAN-7 Assessment Tool: JUAN-7 Assessment 01593 Physical exam (Primary Care) Vital Signs: Last Vital Signs Pulse 93 07/27/24 14:05 BP 120/78 07/27/24 14:05 Pulse Ox 99 07/27/24 14:05 Oxygen Delivery Method Room Air 07/27/24 14:05 BMI result Body Mass Index 33.3 Tobacco/Smoking Status: Tobacco use Status Tobacco use date assessed 07/27/24 07/27/24 14:11 Patient Tobacco Use Status Former Tobacco user 07/27/24 14:11 Tobacco use type Cigarette 07/27/24 14:11 e-Cigarette/Vaping Use Never Used 07/27/24 14:11 PHQ-9: PHQ-9 Score PHQ-9: Total score 0 07/27/24 14:26 Depression Screening Interpretation: Negative Thrive Assessment: Date of Thrive Assessment Date Thrive assessed 07/27/24 07/27/24 14:11 Currently or been in a relationship where the following occur: No concerns reported Const General: alert; No acute distress Eyes Conjunctivae: conjunctivae normal Resp Auscultation: clear to auscultation bilaterally Cardio Rate: regular rate Rhythm: regular rhythm GI Inspection: Yes normal to inspection Extrem General: Yes normal to inspection and No edema Coding Level of Care Code Est Pt Level 4 (38924) Diagnoses Obesity (BMI 30.0-34.9) E66.9 Hypertension I10 Impaired fasting blood sugar R73.01 Urinary frequency R35.0 Erectile dysfunction N52.9 Scrotal cyst L72.9 Additional Codes JUAN-7 Assessment Billing - JUAN-7 Assessment Tool: JUAN-7 Assessment 08174 ([id number]) Assessment & Plan Assessment & Plan (1) Obesity (BMI 30.0-34.9): Code(s): E66.9 - Obesity, unspecified Category: Medical Plan: Diet And exercise (2) Hypertension: Code(s): I10 - Essential (primary) hypertension Category: Medical Plan: Continue with blood pressure medication. Decrease salt intake and exercise on amlodipine and atenolol right now (3) Impaired fasting blood sugar: Code(s): R73.01 - Impaired fasting glucose Category: Medical Plan: Decrease the amount of carbohydrate intake, pasta, bread, rice and potatoes are all sugar and that is aside from all the sweet stuff, remember that fruits are good but they are Sweet also. (4) Urinary frequency: Code(s): R35.0 - Frequency of micturition Category: Medical (5) Erectile dysfunction: Code(s): N52.9 - Male erectile dysfunction, unspecified Category: Medical (6) Scrotal cyst: Code(s): L72.9 - Follicular cyst of the skin and subcutaneous tissue, unspecified Category: Medical Plan History of Present Illness The patient is a 48-year-old male presenting for follow-up on hypertension, diabetes, and addressing recent urological and erectile issues. He has a documented history of hypertension, managed with amlodipine and atenolol, and exhibits good blood pressure control. The patient has also been noted to have type 2 diabetes mellitus with a mildly elevated blood glucose level on recent tests. Concerns about urinary dysfunction include increased nocturia, which began a month and a half ago during travel, and occurrences of discomfort and gaseous sensation upon urination. Additionally, erectile dysfunction has been noticed concurrently, marked by difficulty in achieving and sustaining erections. Recently, there is a report of a noticeable firmness in the right testicle, raising concerns about underlying pathology. The patient?s recent lab results are predominantly within normal limits, excluding the noted hyperglycemia, with good renal and liver function and normal lipid profile. Health Maintenance - Amlodipine and atenolol prescribed for hypertension management - Discussion about the necessity for regular physical exams for blood work and follow-up - Plan for an ultrasound to evaluate the bladder and scrotum - Ordering testosterone level assessment and urinalysis - Pending flu vaccination for the current year - Tetanus vaccine discussion; reminder for next administration in 6 years Social History - Previously resided in the [facility] - Recent travel to [place], associated with the onset of urinary symptoms - Reports no current need for medication refills - Denied any prior significant history of sexually transmitted infections Review of Systems - Genitourinary: Reports increased nocturia and difficulties with maintaining erections - Endocrine: Reports mild elevation in blood sugar levels Physical Exam - Genitourinary- Notable firmness observed on the right testicle Results - Labs: Mildly elevated blood glucose - Urinalysis: Pending - Screening: Pending ultrasound of bladder and scrotum - Hormonal: Pending testosterone levels Plan Management of erectile dysfunction includes the initiation of PDE-5 inhibitors, assessing the impact on patient symptoms. Obesity management through dietary modification and surveillance of metabolic parameters, including blood glucose, is essential. An ultrasound investigation of the bladder and scrotum is planned to assess structural aspects, especially given the noted testicular firmness. Regular monitoring of hypertension, with adherence to antihypertensive therapy, remains a focus. Health maintenance includes updating vaccinations and continued monitoring of diabetic control with emphasis on lifestyle modifications. Patient was informed and verbally consented to the use of an ambient scribe for clinic note documentation during this visit. Discussion Notes I informed the patient about the necessity of addressing erectile dysfunction with medications that need to be taken in advance of anticipated sexual activity. The potential impact of antihypertensive medication on erectile function was discussed, and adjustment options considered if warranted by patient response. I communicated that further evaluation of urinary symptoms with an ultrasound, coupled with blood work assessment, is necessary to get a comprehensive understanding of the condition. We reviewed the importance of maintaining controlled blood sugar levels, with additional encouragement on diet and exercise as corrective measures. Consent was obtained for diagnostic testing, and the importance of following scheduled investigations was underscored. I mentioned scheduling considerations for subsequent consultations to ensure integration of care outcomes. Patient Instructions - Continue current medications for hypertension - Take prescribed erectile dysfunction medication 2 hours before sexual activity - Follow up on lab work including glucose levels and testosterone - Schedule ultrasound for bladder and scrotum evaluation - Attend upcoming vaccinations as scheduled - Maintain a balanced diet and regular exercise for weight management - Keep track of any changes in symptoms and inform if there are any exacerbations Orders: Orders Complete Blood Count Auto Diff 6 Months R73.01 - Impaired fasting glucose Hemoglobin A1c 6 Months R73.01 - Impaired fasting glucose Free T4 (Free Thyroxine) 6 Months R73.01 - Impaired fasting glucose Lipid Panel 6 Months E78.00 - Pure hypercholesterolemia, unspecified, R73.01 - Impaired fasting glucose Testosterone, Total Today N52.9 - Male erectile dysfunction, unspecified Hemoglobin A1c Today N52.9 - Male erectile dysfunction, unspecified Comprehensive Met. Panel Today N52.9 - Male erectile dysfunction, unspecified Comprehensive Met. Panel 6 Months R73.01 - Impaired fasting glucose Thyroid Stimulating Hormone 6 Months R73.01 - Impaired fasting glucose Vitamin B12 and Folate 6 Months R73.01 - Impaired fasting glucose UA CC w/rflx Micro + Cult Today N52.9 - Male erectile dysfunction, unspecified, R30.0 - Dysuria US bladder Today R35.0 - Frequency of micturition US scrotum Today L72.9 - Follicular cyst of the skin and subcutaneous tissue, unspecified AMB Hemoglobin A1c Today L72.9 - Follicular cyst of the skin and subcutaneous tissue, unspecified Prostate Specific Antigen Scr Today N52.9 - Male erectile dysfunction, unspecified Medications: New sildenafil administer 30 minutes to 4 hours before activity 50 mg PO DAILY PRN 14 tabs 0RF sexual activity N52.9 - Male erectile dysfunction, unspecified
--- OUTSIDE RECORDS SUMMARY | 2024-07-27 15:59 | XMS_ITS | Encounter Summary ---
Author Organization [employer] [facility] Address [address] [facility] 7[address] [place] [address] Care Team Providers Care Manager In Training Name Role Phone Unavailable Primary Care Provider Unavailabl e Reason for Visit * Reason Comments Med Refill Encounter Details Date Type Department Care Team (Late st Contact Info) Description 07/13/2022 Refill [facility] [address] [place], [place] [phone] Devendra Isaac MD [address] [place] [address] Hypertension, unspecified type Social History Tobacco Use Types Packs/Day Years Used Date Smoking Tobacco: Never Smokeless Tobacco: Never Sex and Gender Information Value Date Recorded Sex Assigned at Male 05/22/2022 11:43 AM EST Legal Sex Male 11:41 AM EST Gender Identity Male 05/22/2022 11:43 AM EST Sexual Orientation Don't know 05/27/2023 10 :52 AM EST documented as of this encounter Plan of Treatment Not on file documented as of this encounter Visit Diagnoses Diagnosis Hypertension, unspecified type documented in this encounter
--- OUTSIDE RECORDS SUMMARY | 2024-07-27 15:59 | XMS_ITS | Clinical Summary ---
Author Organization [email or web address] [facility] Address [address] [facility] 7 [place] [address] Care Team Providers Care Equipment Cleaner And Tester Name Role Phone Unavailable Primary Care Provider Unavailabl e Allergies No known active allergies Medications acetaminophen (Tylenol) 500 MG tabletIndication s:Upper back pain on right side Take 2 tablets (1,000 mg) by mouth every 6 (six) hours if needed for moderate pain or fever for up to 25 doses. 50 tablet 3 Active ibuprofen 400 MG tabletIndication s:Upper back pain on right side Take 1 tablet (400 mg) by mouth every 6 (six) hours if needed for moderate pain or fever for up to 30 doses. 30 tablet 3 Active amLODIPine (Norvasc) 5 MG tabletIndication s:Hypertension, unspecified type TAKE 1 TABLET BY MOUTH EVERY DAY IN THE MORNING 30 tablet 3 3 Active atenolol (Tenormin) 50 MG tabletIndication s:Hypertension, unspecified type TAKE 1 TABLET BY MOUTH EVERY DAY IN THE MORNING 30 tablet 3 3 Active amLODIPine (Norvasc) 5 MG tabletIndication s:Hypertension, unspecified type Take 1 tablet (5 mg) by mouth in the morning. 30 tablet 3 3 Active atenolol (Tenormin) 50 MG tabletIndication s:Hypertension, unspecified type Take 1 tablet (50 mg) by mouth in the morning. 30 tablet 3 3 Active Active Problems No known active problems Social History Tobacco Use Types Packs/Day Years Used Date Smoking Tobacco: Never Smokeless Tobacco: Never Tobacco Cessation:Counseling Given: Not Answered Sex and Gender Information Value Date Recorded Sex Assigned at Male 05/22/2022 11:43 AM EST Legal Sex Male 11:41 AM EST Gender Identity Male 05/22/2022 11:43 AM EST Sexual Orientation Don't know 05/27/2023 10 :52 AM EST Last Filed Vital Signs Vital Sign Reading Time Taken Comments Blood Pressure 126/86 05/22/2022 1:11 PM EST Pulse 64 05/22/2022 1:11 PM EST Temperature 36.7 ??C (98 ??F) 05/22/2022 1:11 PM EST Respiratory Rate 16 05/22/2022 1:11 PM EST Oxygen Saturation 99% 05/22/2022 1:11 PM EST Inhaled Oxygen Concentration - - Weight 86.1 kg (189 lb 12.8 oz) 05/22/2022 1:11 PM EST Height - - Body Mass Index - - Plan of Treatment Health Maintenance Due Date Last Done Comments CT Colonography 1974 Colonoscopy 1974 Colorectal Cancer Screening 1974 Depression Screening 1974 FIT DNA/Cologuard 1974 FIT 1974 FOBT 1974 HIV Screening 1974 Lipid Panel 1974 SDOH Screening 1974 Sigmoidoscopy 1974 Alcohol/Substance Use Screening 1986 Family Planning (PISQ) 1989 Hepatitis C Screening 1992 DTaP/Tdap/Td Vaccines (1 - Tdap) 1993 Hepatitis B Vaccines (1 of 3 - 19+ 3-dose series) 1993 Tobacco Screening 05/22/2023 05/22/2022 COVID-19 Vaccine (1 - 2023-2 5 season) 2024 Influenza Vaccine (#1) 2024 03/14/2023 Zoster Vaccines (1 of 2) 2024 RSV Patients and Pa tients Aged 60 years or older (1 - 1-dose 75+ series) 2049 HIB Vaccines Aged Out No longer eligi ble based on patient's age to complete this topic HPV Vaccines Aged Out No longer eligi ble based on patient's age to complete this topic Hepatitis A Vaccines Aged Out No long er eligible based on patient's age to complete this topic IPV Vaccines Aged Out No longer eligi ble based on patient's age to complete this topic Meningococcal Vaccine Aged Out No tristian dilma eligible based on patient's age to complete this topic Pneumococcal Vaccine: Pediat rics (0 to 5 Years) and At-Risk Patients (6 to 49) Years) Aged Out No longer elig ible based on patient's age to complete this topic RSV under 20 months Aged Out No longe r eligible based on patient's age to complete this topic Rotavirus Vaccines Aged Out No longer eligible based on patient's age to complete this topic Insurance [id number] [place]
== END 2024-07-27 14:53 | disposition home or self-care (01) ==
PROVIDERS: PCP Internal Medicine; Visit Provider Internal Medicine
DX: I10 Essential (primary) hypertension (principal); E66.9 Obesity, unspecified; Z68.33 Body mass index [BMI] 33.0-33.9, adult; R73.01 Impaired fasting glucose; R35.0 Frequency of micturition; N52.9 Male erectile dysfunction, unspecified; L72.9 Follicular cyst of the skin and subcutaneous tissue, unspecified

== ENCOUNTER → 2024-07-27 14:03 | Outpatient (BNVA) | payer OTHER, SELFPAY | PROVIDERS: PCP Internal Medicine; Visit Provider Internal Medicine | DX: E66.9 Obesity, unspecified (principal); Z68.33 Body mass index [BMI] 33.0-33.9, adult; I10 Essential (primary) hypertension; R73.01 Impaired fasting glucose; R35.0 Frequency of micturition; N52.9 Male erectile dysfunction, unspecified; L72.9 Follicular cyst of the skin and subcutaneous tissue, unspecified; Z71.3 Dietary counseling and surveillance | CPT/HCPCS: 96127; 99212 ==

== ENCOUNTER 2024-07-28 09:55 | Outpatient (REF) | payer OTHER, SELFPAY ==
[2024-07-28 11:09] LABS: Estimated Average Glucose 131 mg/dL; Hemoglobin A1c % 6.2 % (<6.0)
[2024-07-28 11:24] LABS: Appearance Urine Clear; Color Urine Yellow; Glucose Urine UA Negative (Negative); Leukocyte Esterase Urine Negative (Negative); Nitrite Urine Negative (Negative); Urine Blood Negative (Negative); Urine Ketones Negative (Negative); Urine Protein Negative (Neg-Trace)
--- OUTSIDE RECORDS SUMMARY | 2024-07-28 11:26 | XMS_ITS | Encounter Summary ---
Author Organization [employer] [facility] Address [address] [facility] 7[address] [place] [address] Care Team Providers Care Sand Conditioner Name Role Phone Unavailable Primary Care Provider Unavailabl e Reason for Visit * Reason Comments Med Refill Encounter Details Date Type Department Care Team (Late st Contact Info) Description 07/13/2022 Refill [facility] [address] [place], [place] [phone] Devendra Isaac MD [address] [place] [address] Hypertension, unspecified type Social History Tobacco Use [...]
--- OUTSIDE RECORDS SUMMARY | 2024-07-28 11:26 | XMS_ITS | Clinical Summary ---
Author Organization [employer] [facility] Address [address] [facility] [address] [place] [address] Care Team Providers Care Foreign Legal Consultant Name Role Phone Unavailable Primary Care Provider [...] patient's age to complete this topic Insurance [id number] [place]
[2024-07-28 12:09] LABS: Prostate Specific Antigen Scr 2.71 ng/mL (<0.05-4.0)
[2024-07-28 12:21] LABS: Albumin Level 4.3 g/dL (3.5-5.0); Alkaline Phosphatase 81 U/L (39-117); Anion Gap 13 (12-20); Aspartate Amino Transferase 30 U/L (5-37); Bilirubin Total 0.5 mg/dL (0.0-1.0); Blood Urea Nitrogen 12 mg/dL (9-16); Calcium 9.5 mg/dL (8.4-10.2); Carbon Dioxide 25 mmol/L (22-29); Chloride 109 mmol/L (96-108); Estimated Glomerular Filt Rate > 60; Glucose Random 98 mg/dL (60-115); Potassium 5.1 mmol/L (3.3-5.1); Sodium 142 mmol/L (135-145); Total Protein 8.6 g/dL (6.5-8.0)
[2024-07-28 12:47] LABS: Alanine Aminotransferase 40 U/L (0-40)
[2024-08-03 23:44] LABS: Testosterone, Total 230 ng/dL (250-1100)
== END 2024-07-28 09:56 | disposition home or self-care (01) ==
LOC: HO.LAB 09:55
PROVIDERS: PCP Internal Medicine; Visit Provider Internal Medicine
DX: N52.9 Male erectile dysfunction, unspecified (principal); R30.0 Dysuria
CPT/HCPCS: 36415; 80053; 81003; 83036; 84153; 84403

== ENCOUNTER 2024-08-13 09:48 | Outpatient (REF) | payer OTHER, SELFPAY ==
[2024-08-13 11:29] LABS: Free T4 (Free Thyroxine) 1.61 ng/dL (0.71-1.85)
[2024-08-14 15:42] LABS: Follicle Stimulating Hormone 6.7 mIU/mL (1.4-12.8); Lutenizing Hormone 2.4 mIU/mL (1.5-9.3); Prolactin 3.4 ng/mL (2.0-18.0)
[2024-08-14 16:54] LABS: Transferrin 265 mg/dL (188-341)
[2024-08-20 15:49] LABS: Cortisol, Free 0.16 mcg/dL
[2024-08-20 20:12] LABS: Testosterone, Free 43.5 pg/mL (35.0-155.0); Testosterone, Total 250 ng/dL (250-1100)
== END 2024-08-13 09:49 | disposition home or self-care (01) ==
LOC: HO.LAB 09:48
PROVIDERS: PCP Internal Medicine; Visit Provider Internal Medicine
DX: R79.89 Other specified abnormal findings of blood chemistry (principal)
CPT/HCPCS: 36415; 82530; 83001; 83002; 84146; 84402; 84403; 84439; 84466

== ENCOUNTER 2024-08-19 11:37 | Outpatient (REF) | payer OTHER, SELFPAY ==
--- NOTE | ~2024-08-19 | US_ITS ---
CLINICAL HISTORY: L72.9 - CYST OF SCROTUM US scrotum with Doppler Comparison: None Technique: Real time sonographic imaging, including color-flow imaging and spectral analysis, was performed by the rabbler. Multiple inbound customer service representative static images were saved for review. Findings: Right testicle normal size and echotexture, 4.8 x 2.2 x 3.1 Cm. Normal color flow and spectral tracing. Left testicle normal size and echotexture, 4.8 x 2.2 x 3.3 cm. Normal color flow and spectral tracing. No significant epididymal abnormalities. No hydroceles or varicoceles. Impression: No significant abnormality. This document has been electronically signed by: Catalino Graham MD on 08/19/2024 19:46:43
--- NOTE | ~2024-08-19 | US_ITS ---
CLINICAL HISTORY: R35.0 - Frequency of micturition US kidneys and bladder Comparison: None Findings: The urinary bladder is unremarkable. Prevoid volume 258 mL. Post void volume 50 to mL. Bilateral ureteral jets visualized. Impression: No significant abnormalities. Ultrasound prostate Comparison: None Findings: Prostate heterogeneous without focal nodule. Prostate measures 3.7 x 3.2 x 4.0 cm. Prostate volume 25 mL. Impression: Heterogeneous prostate without focal nodule This document has been electronically signed by: Catalino Graham MD on 08/19/2024 19:11:41
--- OUTSIDE RECORDS SUMMARY | 2024-08-19 14:11 | XMS_ITS | Clinical Summary ---
Author Organization [employer] [facility] Address [address] [facility] [address] [place] [address] Care Team Providers Care Automatic Pad Making Machine Operator Name Role Phone Unavailable Primary Care Provider [...] season) 2024 Influenza Vaccine (#1) 2024 03/14/2023 Pneumococcal Vaccine: 50+ Ye ars (1 of 1 - PCV) 2024 Zoster Vaccines (1 of 2) 2024 RSV [...] patient's age to complete this topic Insurance [facility] [place]
--- OUTSIDE RECORDS SUMMARY | 2024-08-19 14:11 | XMS_ITS | Encounter Summary ---
Author Organization [employer] [facility] Address [address] [facility] [address] [place] [address] Care Team Providers Care Caregiver Services Home Name Role Phone Unavailable Primary Care Provider Unavailabl e Reason for Visit * Reason Comments Med Refill Encounter Details Date Type Department Care Team (Late st Contact Info) Description 07/13/2022 Refill [facility] [address] [place], [place] [phone] Devendra Isaac MD [address] [place] [address] Hypertension, unspecified type Social History Tobacco Use [...]
== END 2024-08-19 11:38 | disposition home or self-care (01) ==
LOC: HO.US 11:37
PROVIDERS: PCP Internal Medicine; Visit Provider Internal Medicine
DX: R35.0 Frequency of micturition (principal); L72.9 Follicular cyst of the skin and subcutaneous tissue, unspecified
CPT/HCPCS: 76857; 76870

== ENCOUNTER → 2024-08-19 11:39 | Outpatient (BNV) | payer OTHER, SELFPAY | PROVIDERS: PCP Internal Medicine; Visit Provider Radiology Diagnostic Radiology | DX: L72.9 Follicular cyst of the skin and subcutaneous tissue, unspecified (principal); R35.0 Frequency of micturition; N42.89 Other specified disorders of prostate | CPT/HCPCS: 76857; 76870 ==

== ENCOUNTER 2024-10-29 15:08 | Outpatient (AMB) | payer OTHER, SELFPAY ==
--- NOTE | 2024-10-29 15:20 | MHC.PC.OV ---
Vital Signs 10/29/24 15:21 Weight 203 lb 4 oz BP 119/84 Blood Pressure Location Lt brachial Position Sitting Respiration 18 Pulse 84 Pulse Source Pulse Oximeter Pulse Oximetry (%) 94 Oxygen Delivery Method Room Air Intake Visit Reasons: HTN, erectile dysfunction Frame Polisher Required: Yes Frame Polisher Language: Luxembourgish Muck Miner Blasting: Not Required per policy Accompanied by: Self / Same As Patient Allergies Penicillins Adverse Reaction (Intermediate, Verified 10/29/24 15:25) pruritus Medication List - Last Reconciled 10/29/24 by Froilan Starkey MD amlodipine 5 mg PO DAILY atenolol 50 mg PO DAILY sildenafil 50 mg PO DAILY PRN Tobacco use date assessed: 07/27/24 Dental Screening Dental Screen Date: 10/29/24 Did you have a dental visit in the last 12 months?: Yes Did you have a dental problem in the last 6 months where you did not have access to dental care?: No Was dental information given to patient?: Patient has dentist HPI HTN, erectile dysfunction HPI Details jamila [id number] armenian 49-year-old obese male with a history of hypertension impaired glucose tolerance frequency erectile dysfunction coming in for follow-up. Last seen in June and blood workup was done patient is here for follow-up. Ultrasound was done revealing negative results. [facility] Medical History HTN (hypertension) Surgical History History of surgery on arm Family History Father Hypertension Mother Hypertension Stroke Myocardial infarct Paternal Grandfather Stomach cancer Social History Housing: House Alcohol intake: current Alcohol intake frequency: a few times a month Alcohol type: beer Comment: once a month 5 -6 drinks Patient Tobacco Use Status: Former Tobacco user Tobacco use type: Cigarette Years Smoked: stopped 2020 smoked for 11 years 2008- apck a day after 2013 1-2 a day e-Cigarette/Vaping Use: Never Used Second Hand Smoke Exposure: No service: No Current occupational status: unemployed Cognitive needs: No Hearing needs: No Vision needs: No Questionnaire PHQ-9 Over the last 2 weeks, how often have you been bothered by any of the following problems? 1. Little interest or pleasure in doing things: not at all 2. Feeling down, depressed, or hopeless: not at all 3. Trouble falling or staying asleep, or sleeping too much: not at all 4. Feeling tired or having little energy: not at all 5. Poor appetite or overeating: not at all 6. Feeling bad about yourself - or that you are a failure or have let yourself or your family down: not at all 7. Trouble concentrating on things, such as reading the newspaper or watching television: not at all 8. Moving or speaking so slowly that other people could have noticed. Or the opposite - being so fidgety or restless that you have been moving around a lot more than usual: not at all 9. Thoughts that you would be better off or of hurting yourself in some way: not at all Total score: 0 Depression Screening Interpretation: Negative Depression Screening Done: Yes 95861 - PHQ-9 Billing: Yes Source: Developed by Drs. Jose Ureña, Narda Gomez, Trell Saez and colleagues, with an educational ramya from [employer]. Thrive Questionnaire Date Thrive assessed: 10/29/24 I am a: Patient What is your living situation today?: I have a steady place to live Within the past 12 months, did the food you bought not last and you didn't have the money to get more?: I choose not to answer this question Within the past 12 months, did you worry whether your food would run out before you got money to buy more?: I choose not to answer this question Do you have trouble paying for medicines?: No Do you have trouble getting transportation to medical appointments?: No Do you have trouble paying your heating and electricity bill?: No Do you have trouble taking care of your child, family member or friend?: No Do you have trouble with day-to-day activities such as bathing, preparing meals, shopping, managing finances, etc.?: No Are you currently unemployed and looking for a job?: Yes Are you interested in more education?: Yes Please select the resources that you would like help with: None Currently or been in a relationship where the following occur: No concerns reported THRIVE Score: 0 AUDIT C Alcohol Use Questionnaire (AUDIT-C) 1. How often do you have a drink containing alcohol?: Monthly or less 2. How many drinks containing alcohol do you have on a typical day when you are drinking?: 5 or 6 3. How often do you have six or more drinks on one occasion?: Monthly Total Score: 5 JUAN-7 AMB Questionnaire JUAN-7 Date JUAN - 7 assessed: 10/29/24 Feeling nervous, anxious, or on edge: 0 = Not at all Not being able to stop or control worryin = Not at all Worrying too much about different things: 0 = Not at all Trouble relaxin = Not at all Being so restless that it is hard to sit still: 0 = Not at all Becoming easily annoyed or irritable: 0 = Not at all Feeling afraid as if something awful might happen: 0 = Not at all Total JUAN-7 score (0-4 normal; 5-9 mild; 10-14 moderate; 15-21 severe): 0 Source: Developed by Drs. Jose Urñea, Narda Gomez, Trell Saez and colleagues, with an educational ramya from [employer]. JUAN-7 Assessment Billing JAUN-7 Assessment Tool: JUAN-7 Assessment 14425 Physical exam (Primary Care) Vital Signs: Last Vital Signs Pulse 84 10/29/24 15:21 Resp 18 10/29/24 15:21 BP 119/84 10/29/24 15:21 Pulse Ox 94 10/29/24 15:21 Oxygen Delivery Method Room Air 10/29/24 15:21 Tobacco/Smoking Status: Tobacco use Status Tobacco use date assessed 07/27/24 10/29/24 15:25 Patient Tobacco Use Status Former Tobacco user 10/29/24 15:25 Tobacco use type Cigarette 10/29/24 15:25 e-Cigarette/Vaping Use Never Used 10/29/24 15:25 PHQ-9: PHQ-9 Score PHQ-9: Total score 0 10/29/24 16:02 Depression Screening Interpretation: Negative Thrive Assessment: Date of Thrive Assessment Date Thrive assessed 10/29/24 10/29/24 15:25 Currently or been in a relationship where the following occur: No concerns reported Const General: alert; No acute distress Eyes Conjunctivae: conjunctivae normal Resp Auscultation: clear to auscultation bilaterally Cardio Rate: regular rate Rhythm: regular rhythm GI Inspection: Yes normal to inspection Extrem General: Yes normal to inspection and No edema Coding Level of Care Code Est Pt Level 4 (63991) Complex EM visit Add On G2211 Diagnoses Low testosterone R79.89 Impaired fasting blood sugar R73.01 Obesity (BMI 30.0-34.9) E66.9 Primary hypertension I10 Hypertension type: primary hypertension Additional Codes JUAN-7 Assessment Billing - JUAN-7 Assessment Tool: JUAN-7 Assessment 43324 ([id number]) PHQ-9 - 16102 - PHQ-9 Billing: Yes ([id number]) Assessment & Plan Assessment & Plan (1) Low testosterone: Code(s): R79.89 - Other specified abnormal findings of blood chemistry Category: Medical Plan: Patient is tested having low testosterone (2) Impaired fasting blood sugar: Code(s): R73.01 - Impaired fasting glucose Category: Medical Plan: Decrease the amount of carbohydrate intake, pasta, bread, rice and potatoes are all sugar and that is aside from all the sweet stuff, remember that fruits are good but they are Sweet also. (3) Obesity (BMI 30.0-34.9): Code(s): E66.9 - Obesity, unspecified Category: Medical Plan: Diet and exercise (4) Hypertension: Code(s): I10 - Essential (primary) hypertension Category: Medical Qualifiers: Hypertension type: primary hypertension Qualified Code(s): I10 - Essential (primary) hypertension Plan: Continue with blood pressure medication. Decrease salt intake and exercise on amlodipine and atenolol Orders: Orders Comprehensive Met. Panel 3 Months R73.01 - Impaired fasting glucose Hemoglobin A1c 3 Months R73.01 - Impaired fasting glucose Referrals Urology Referral R79.89 - Other specified abnormal findings of blood chemistry Medications: Refilled amlodipine 5 mg PO DAILY 90 tabs 1RF I10 - Essential (primary) hypertension sildenafil administer 30 minutes to 4 hours before activity 50 mg PO DAILY PRN 14 tabs 0RF sexual activity N52.9 - Male erectile dysfunction, unspecified atenolol 50 mg PO DAILY 90 tabs 1RF I10 - Essential (primary) hypertension
[2024-10-29 15:21] VITALS: BP 119/84; PULSE 84; RESP 18; O2SAT 94
--- OUTSIDE RECORDS SUMMARY | 2024-10-29 17:47 | XMS_ITS | Clinical Summary ---
Author Organization [employer] Address [address] [facility] 7 [place] [address] Care Team Providers Care Overlay Plastician Name Role Phone Unavailable Primary Care Provider [...] Panel 1974 SDOH Screening 1974 Sigmoidoscopy 1974 Disability Screening 1974 Alcohol/Substance Use Screening 1986 Family Planning (PISQ) 1989 Hepatitis C Screening 1992 DTaP/Tdap/Td Vaccines (1 - Tdap) 1993 Hepatitis B Vaccines (1 of 3 - 19+ 3-dose series) 1993 Tobacco Screening 05/22/2023 05/22/2022 COVID-19 Vaccine (1 - 2023-2 5 season) 2024 Pneumococcal Vaccine: 50+ Ye ars (1 of 1 - PCV) 2024 Zoster Vaccines (1 of 2) 2024 Influenza Vaccine (Season Ended) 2025 03/14/20 23 RSV Patients and Pa tients Aged 60 [...] patient's age to complete this topic Meningococcal B Vaccine Aged Out No l onger eligible based on patient's age to complete this topic Meningococcal Vaccine Aged Out No tristian dilma eligible based on patient's age to complete this topic RSV under 20 months Aged Out No longe r eligible based on patient's age to complete this topic Rotavirus Vaccines Aged Out No longer eligible based on patient's age to complete this topic Insurance [id number] [place] [facility] [place] Address: [address] [address]
== END 2024-10-29 16:47 | disposition home or self-care (01) ==
LOC: HO.HMCH 15:09
PROVIDERS: PCP Internal Medicine; Visit Provider Internal Medicine
DX: R79.89 Other specified abnormal findings of blood chemistry (principal); R73.01 Impaired fasting glucose; E66.9 Obesity, unspecified; Z68.30 Body mass index [BMI] 30.0-30.9, adult; I10 Essential (primary) hypertension

== ENCOUNTER → 2024-10-29 15:08 | Outpatient (BNVA) | payer OTHER, SELFPAY | PROVIDERS: PCP Internal Medicine; Visit Provider Internal Medicine | DX: I10 Essential (primary) hypertension (principal); N52.9 Male erectile dysfunction, unspecified; R73.01 Impaired fasting glucose; R79.89 Other specified abnormal findings of blood chemistry; E66.9 Obesity, unspecified | CPT/HCPCS: 96127; 99212 ==

== ENCOUNTER 2025-01-11 15:12 | Outpatient (AMB) | payer OTHER, SELFPAY ==
--- NOTE | 2025-01-11 15:39 | A.OFFVIS_ITS ---
Intake Visit Reasons: low testosterone Intake Note: Patient is present for LOW TESTOSTERONE Urology Medication:SILDENAFIL Antibiotic Allergy:PENICILLINS Blood Thinner:NONE TODAY'S PVR:0ML'S Movement Assembly Final Inspector Required: Yes Movement Assembly Final Inspector Services: Movement Assembly Final Inspector Present Movement Assembly Final Inspector Name: Low Hand Cardiopulmonary Physical Therapist: Cardiopulmonary Physical Therapist offered & declined Allergies Penicillins Adverse Reaction (Intermediate, Verified 01/11/25 17:29) pruritus Medication List - Last Reconciled 01/11/25 by KEYANA OliverP- amlodipine 5 mg PO DAILY atenolol 50 mg PO DAILY clotrimazole-betamethasone 1-0.05 % 1 appl topical BID 4 weeks sildenafil 50 mg PO DAILY PRN tadalafil (Cialis) 5 mg PO DAILY 90 days HPI Comments Details: Elio is a 49-year-old Portuguese-speaking male patient of Dr. Starkey. He has a past medical history of hypertension and prediabetes. He presents to the office today as a new patient for low testosterone. In discussion with the patient today he reports having followed up with his PCP in discussing issues with low libido and erectile dysfunction at which time labs were drawn and recommendations were made for urology referral for further assessment evaluation. When asked he does report he is able to obtain an erection however feels maintaining erections are difficult. Labs are as follows: Testosterone: 08/11 230, 08/11 250 Free testosterone: 08/11 43.5 Prolactin: 08/11 3.4 LH: 08/11 2.4 FSH: 08/11 6.7 PSA: 02/10 0.8, 08/11 2.7 We did discussed potential causes of hypogonadism, ED, low libido, and elevation in PSA in 6 months. We did discussed potential causes of these urological conditions and further treatment options. He also reports noting the head of his penis has irritation. In assessment of the patient today the penis is uncircumcised in upon retraction of penile foreskin there is [id number] irritation noted on the gland of the penis no open areas, lesions, and or drainage noted. We did discussed balanitis. We discussed further treatment options and risks and benefits of these treatment options. When asked he denies any bothersome urinary issues. He denies urinary urgency, urinary frequency, incontinence, nocturia, hematuria, dysuria, foul smelling urine, changes to urinary stream, flank pain, fever, and or chills. He is happy with his current voiding parameters. In office urinalysis results reviewed with the patient today. All questions were answered. He otherwise offers no other issues or concerns at this time. [facility] Medical History HTN (hypertension) Surgical History History of surgery on arm Family History Father Hypertension Mother Hypertension Stroke Myocardial infarct Paternal Grandfather Stomach cancer Social History Housing: House Alcohol intake: current Alcohol intake frequency: a few times a month Alcohol type: beer Comment: once a month 5 -6 drinks Patient Tobacco Use Status: Former Tobacco user Tobacco use type: Cigarette Years Smoked: stopped 2020 smoked for 11 years 2008- apck a day after 2013 1-2 a day e-Cigarette/Vaping Use: Never Used Second Hand Smoke Exposure: No service: No Current occupational status: unemployed Cognitive needs: No Hearing needs: No Vision needs: No Review of Systems Const All systems reviewed & are unremarkable except as noted in HPI and below Physical Exam Const General: cooperative, comfortable, no acute distress, well developed, alert and awake Nutritional Appearance: overweight Orientation/consciousness: patient oriented x3 Limitations: language barrier HEENT Head: Yes normal to inspection, Yes normocephalic and Yes atraumatic Ears: hearing grossly normal bilaterally Eyes General: appearance normal, both eyes and all related structures Neck Neck: Yes normal visual inspection and Yes trachea midline Chest Chest palpation & inspection: normal inspection of the chest Resp Effort & Inspection: normal respiratory effort and able to speak in complete sentences Cardio Rate: regular rate GI Inspection: Yes normal to inspection General: Yes no CVA tenderness Back/Spine/Pelvis Back: no CVA tenderness Skin General skin exam: no rashes or lesions noted Neuro General: patient oriented x3 Extrem General: Yes normal to inspection Psych Appearance: grossly normal and well kempt Mental Status: mental status grossly normal Speech and movement: Normal speech and movement present and Clear speech present Affect: normal affect Attitude: cooperative Thought process: Normal thought process present Thought content: Normal thought content present Insight: Fair insight present (Psych) Judgement: Fair judgement present (Psych) Office Procedures Post Void Residual Post Residual Void Post Void Residual (PVR): 0 26585-Euxw Void Residual by ultrasound Results AMB Urinalysis, Automated UA Leukoctes 0 Martita/uL Last Edit by VETO Velasquez on 01/11/25 16:29 UA Nitrite Negative Last Edit by Malena Elizabeth [facility] on 01/11/25 16:29 UA Urobilinogen 0.2 mg/dL Last Edit by Malena Elizabeth [facility] on 01/11/25 16:2 9 UA Protein 30 mg/dL Last Edit by Malena Elizabeth [facility] on 01/11/25 16:29 UA pH 6.0 Last Edit by Malena Elizabeth [facility] on 01/11/25 16:29 UA Blood 10 Tacho/uL Last Edit by Malena Elizabeth [facility] on 01/11/25 16:29 UA Specific [place] 1.025 Last Edit by Malena Elizabeth [facility] on 01/11/25 16: 29 UA Ketone Positive Last Edit by Malena Elizabeth [facility] on 01/11/25 16:29 UA Bilirubin 1 mg/dL Last Edit by Malena Elizabeth [facility] on 01/11/25 16:29 UA Glucose 0 mg/dL Last Edit by Malena Elizabeth [facility] on 01/11/25 16:29 Results Reviewed Results Reviewed: Laboratory Last Values Urine pH (Auto) 6.0 01/11/25 16:28 Specific [place] (Auto) 1.025 01/11/25 16:28 Urine Protein (Auto) 30 mg/dL 01/11/25 16:28 Glucose (UA)(Auto) 0 mg/dL 01/11/25 16:28 Urine Ketones (Auto) Positive 01/11/25 16:28 Urine Blood (Auto) 10 Tacho/uL 01/11/25 16:28 Urine Nitrite (Auto) Negative 01/11/25 16:28 Urine Bilirubin (Auto) 1 mg/dL 01/11/25 16:28 Urine Urobilinogen (Auto) 0.2 mg/dL 01/11/25 16:28 Leukocyte Esterase (Auto) 0 Martita/uL 01/11/25 16:28 Assessment & Plan Assessment & Plan (1) Erectile dysfunction: Code(s): N52.9 - Male erectile dysfunction, unspecified Category: Medical (2) Low testosterone: Code(s): R79.89 - Other specified abnormal findings of blood chemistry Category: Medical (3) Balanitis: Code(s): N48.1 - Balanitis Category: Medical (4) Low libido: Code(s): R68.82 - Decreased libido Category: Medical Plan In office urinalysis results reviewed with the patient today; as noted above. PVR 0 mL Previous labs were reviewed with the patient today; as noted above. We did discussed potential causes of ED, low libido, borderline low testosterone, and balanitis; we discussed further treatment options of these urological conditions and risks and benefits of these treatment options. We discussed lifestyle modifications to assist with these urological conditions. Start Cialis as discussed and prescribed. Start betamethasone-clotrimazole as discussed and prescribed. He currently denies any bothersome urinary issues. He reports be happy with current voiding parameters. We discussed redraw of PSA with no sex the night before, no caffeine morning of, and no heavy lifting 1-2 days prior. Will obtain testosterone in 3 months. Follow-up in 1-3 months with labs to be completed prior; or sooner with any issues, concerns, and or questions. Orders: Orders Prostate Specific Antigen Today N52.9 - Male erectile dysfunction, unspecified AMB Urinalysis Automated Today Z13.9 - Encounter for screening, unspecified Testosterone, Total 3 Months N52.9 - Male erectile dysfunction, unspecified, R79.89 - Other specified abnormal findings of blood chemistry Medications: New tadalafil (Cialis) [id number] [facility] [employer] Member [id number] 5 mg PO DAILY 90 tabs 0RF 90 days clotrimazole-betamethasone 1-0.05 % Apply thin coat 2 times per day 1 appl topical BID 45 grams 0RF 4 weeks N48.1 - Balanitis Patient Instructions: The patient had an opportunity to ask questions regarding the treatment plan. All questions were answered. Physical exam, labs, and imaging were discussed and reviewed in detail. As well as risks, benefits, and discussion of treatment choices. No major barriers to understanding were identified. The patient expressed understanding and agreement with the above treatment plan. The patient was made aware they should contact our office by phone for worsening of their current condition, the appearance of new symptoms, or with any questions or concerns. Compliance is encouraged with any medications and follow up testing that is ordered. It is a privilege to be allowed the opportunity to participate in? your urological care.? Again, if you have any questions or concerns If you have any questions or concerns please do not hesitate to contact me. The office is [phone]. This note is constructed using voice recognition software. While every effort has been made to ensure accuracy biometry teacher errors may have been included. Yours sincerely, AICHA Oliver Coding Level of Care Code New Pt Level 4 (22430) Diagnoses Erectile dysfunction N52.9 Low testosterone R79.89 Balanitis N48.1 Low libido R68.82 CPT Codes Post Residual Void - PVR CPT Code: 48375-[id number] Void Residual by ultrasound ([id number])
--- OUTSIDE RECORDS SUMMARY | 2025-01-11 16:51 | XMS_ITS | Clinical Summary ---
Author Organization [employer] Address [address] [place] [address] Care Team Providers Care Director Of Education And Training Name Role Phone Unavailable Primary Care [...] 63 05/22/2022 1:11 PM EST Temperature 36.7 C (98 F) 05/22/2022 1:11 PM EST Respiratory Rate 16 [...] Vaccines (1 of 2) 2024 Influenza Vaccine (#1) 2025 03/14/2023 RSV Patients and Pa tients Aged 60 [...] patient's age to complete this topic Insurance [id number] [id number] [facility] [place] Address: [address] [address]
--- OUTSIDE RECORDS SUMMARY | 2025-01-11 16:51 | XMS_ITS | Encounter Summary ---
Author Organization [facility] Address [address] [place] [address] Care Team Providers Care Financial Analyst Intern Name Role Phone Unavailable Primary Care Provider Unavailabl e Reason for Visit * Reason Comments Med Refill Encounter Details Date Type Department Care Team (Late st Contact Info) Description 07/13/2022 Refill [facility] [address], [place] [id number] Devendra Isaac MD [address] [place] [address] Hypertension, unspecified type Social History Tobacco Use [...]
== END 2025-01-11 16:18 | disposition home or self-care (01) ==
LOC: HO.HUSH 15:13
PROVIDERS: PCP Internal Medicine; Visit Provider Nurse Practitioner Family
DX: N52.9 Male erectile dysfunction, unspecified (principal); R79.89 Other specified abnormal findings of blood chemistry; N48.1 Balanitis; R68.82 Decreased libido; Z13.9 Encounter for screening, unspecified
CPT/HCPCS: 99204

== ENCOUNTER → 2025-01-11 15:12 | Outpatient (BNVA) | payer OTHER, SELFPAY | PROVIDERS: PCP Internal Medicine; Visit Provider Nurse Practitioner Family | DX: N48.1 Balanitis (principal); N52.9 Male erectile dysfunction, unspecified; R79.89 Other specified abnormal findings of blood chemistry; R68.82 Decreased libido | CPT/HCPCS: 51798; 81003; 99202 ==

== ENCOUNTER 2025-02-01 15:51 | Outpatient (REF) | payer OTHER, SELFPAY ==
--- OUTSIDE RECORDS SUMMARY | 2025-02-02 13:13 | XMS_ITS | Encounter Summary ---
Author Organization [employer] [facility] Address [address] [place] [address] Care Team Providers Care Mall Manager Name Role Phone Unavailable Primary Care Provider Unavailabl e Reason for Visit * Reason Comments Med Refill Encounter Details Date Type Department Care Team (Late st Contact Info) Description 07/13/2022 Refill [facility] [address] [place], [place] [phone] Devendra Isaac MD [address] [place] [address] Hypertension, unspecified type Social History Tobacco Use [...]
--- OUTSIDE RECORDS SUMMARY | 2025-02-02 13:13 | XMS_ITS | Clinical Summary ---
Author Organization [employer] Address [address] [facility] [address] [place] [address] Care Team Providers Care Granulating Machine Operator Name Role Phone Unavailable Primary [...] patient's age to complete this topic Insurance [id number] PARTIAL [id number] [facility] [place] Address: [address] [id number]
== END 2025-02-01 15:52 | disposition home or self-care (01) ==
LOC: HO.LAB 15:51
PROVIDERS: PCP Internal Medicine; Visit Provider Internal Medicine
DX: Z00.00 Encounter for general adult medical examination without abnormal findings (principal); Z23 Encounter for immunization; N52.9 Male erectile dysfunction, unspecified; N48.1 Balanitis; E66.9 Obesity, unspecified; R73.01 Impaired fasting glucose; I10 Essential (primary) hypertension
CPT/HCPCS: 90471; 90715; 99396

== ENCOUNTER 2025-02-01 15:51 | Outpatient (AMB) | payer OTHER, SELFPAY ==
[2025-02-01 15:57] VITALS: BP 128/70; PULSE 81; O2SAT 98; BMI 31.6
--- NOTE | 2025-02-01 15:57 | A.OFFPC_ITS ---
Vital Signs 02/01/25 15:57 Height 5 ft 6 in Weight 196 lb BMI 31.6 BP 128/70 Blood Pressure Location Lt brachial Position Sitting Pulse 81 Pulse Source Pulse Oximeter Pulse Oximetry (%) 98 Oxygen Delivery Method Room Air Intake Visit Reasons: Annual Exam Manager Psychiatry Required: Yes Manager Psychiatry Language: Swedish Allergies Penicillins Adverse Reaction (Intermediate, Verified 02/01/25 15:57) pruritus Medication List - Last Reconciled 02/01/25 by Froilan Starkey MD amlodipine 5 mg PO DAILY atenolol 50 mg PO DAILY clotrimazole-betamethasone 1-0.05 % 1 appl topical BID 4 weeks tadalafil (Cialis) 5 mg PO DAILY 90 days Tobacco use date assessed: 07/27/24 Dental Screening Dental Screen Date: 10/29/24 HPI Annual Exam HPI Details Elmer [id number] setswana interpret. lower back pain PFSH Medical History HTN (hypertension) Surgical History History of surgery on arm Family History (Updated 02/01/25 @ 16:16 by Froilan Starkey MD) Father Hypertension Mother Hypertension Stroke Myocardial infarct Paternal Grandfather Stomach cancer Maternal Uncle Myocardial infarct Social History (Updated 02/01/25 @ 16:17 by Froilan Starkey MD) Housing: House Alcohol intake: current Alcohol intake frequency: a few times a month Alcohol type: beer Comment: once a month 5 -6 drinks, 01/2025 weekend one bottle Patient Tobacco Use Status: Former Tobacco user Tobacco use type: Cigarette Years Smoked: stopped 2020 smoked for 11 years 2008- apck a day after 2013 1-2 a day e-Cigarette/Vaping Use: Never Used Second Hand Smoke Exposure: No service: No Current occupational status: unemployed Cognitive needs: No Hearing needs: No Vision needs: No Questionnaire PHQ-9 Over the last 2 weeks, how often have you been bothered by any of the following problems? 1. Little interest or pleasure in doing things: not at all 2. Feeling down, depressed, or hopeless: not at all 3. Trouble falling or staying asleep, or sleeping too much: not at all 4. Feeling tired or having little energy: not at all 5. Poor appetite or overeating: not at all 6. Feeling bad about yourself - or that you are a failure or have let yourself or your family down: not at all 7. Trouble concentrating on things, such as reading the newspaper or watching television: not at all 8. Moving or speaking so slowly that other people could have noticed. Or the opposite - being so fidgety or restless that you have been moving around a lot more than usual: not at all 9. Thoughts that you would be better off or of hurting yourself in some way: not at all Total score: 0 Depression Screening Interpretation: Negative Depression Screening Done: Yes Source: Developed by Drs. Jose Ureña, Narda Gomez, Trell Saez and colleagues, with an educational ramya from [employer]. Thrive Questionnaire Date Thrive assessed: 10/29/24 I am a: Patient What is your living situation today?: I have a steady place to live Within the past 12 months, did the food you bought not last and you didn't have the money to get more?: I choose not to answer this question Within the past 12 months, did you worry whether your food would run out before you got money to buy more?: I choose not to answer this question Do you have trouble paying for medicines?: No Do you have trouble getting transportation to medical appointments?: No Do you have trouble paying your heating and electricity bill?: No Do you have trouble taking care of your child, family member or friend?: No Do you have trouble with day-to-day activities such as bathing, preparing meals, shopping, managing finances, etc.?: No Are you currently unemployed and looking for a job?: Yes Are you interested in more education?: Yes Please select the resources that you would like help with: None Currently or been in a relationship where the following occur: No concerns re ported THRIVE Score: 0 AUDIT C Alcohol Use Questionnaire (AUDIT-C) 1. How often do you have a drink containing alcohol?: Monthly or less 2. How many drinks containing alcohol do you have on a typical day when you are drinking?: 5 or 6 3. How often do you have six or more drinks on one occasion?: Monthly Total Score: 5 JUAN-7 AMB Questionnaire JUAN-7 Date JUAN - 7 assessed: 10/29/24 Source: Developed by Drs. Jose Ureña, Narda Gomez, Trell Saez and colleagues, with an educational ramya from [employer]. Review of Systems Const Denies poor appetite and Denies weakness Eyes Denies no additional complaints ENT Reports Normal hearing present, Denies dizziness, Denies nasal congestion, Denies tinnitus and Denies sore throat Card Denies chest pain, Denies syncope, Denies rapid heart rate and Denies dyspnea Resp Denies cough and Denies dyspnea GI Denies change in stool character, Reports constipation, Denies diarrhea, Denies nausea and Denies vomiting Denies dysuria and Denies urinary frequency Neuro Reports Normal hearing present, Denies confusion, Denies dizziness, Denies synco pe and Denies weakness Psych Denies confusion Physical exam (Primary Care) Vital Signs: Last Vital Signs Pulse 81 02/01/25 15:57 BP 128/70 02/01/25 15:57 Pulse Ox 98 02/01/25 15:57 Oxygen Delivery Method Room Air 02/01/25 15:57 BMI result Body Mass Index 31.6 Tobacco/Smoking Status: Tobacco use Status Tobacco use date assessed 07/27/24 02/01/25 16:00 Patient Tobacco Use Status Former Tobacco user 02/01/25 16:17 Tobacco use type Cigarette 02/01/25 16:17 e-Cigarette/Vaping Use Never Used 02/01/25 16:17 PHQ-9: PHQ-9 Score PHQ-9: Total score 0 02/01/25 16:29 Depression Screening Interpretation: Negative Thrive Assessment: Date of Thrive Assessment Date Thrive assessed 10/29/24 02/01/25 16:00 Currently or been in a relationship where the following occur: No concerns reported Const General: No confusion Orientation/consciousness: No confusion HENMT Head: Yes normocephalic Ears: external ears normal and TM's normal bilaterally Face and sinus: Yes normal facial exam Mouth: moist mucous membranes Throat: Yes tonsils normal Eyes Conjunctivae: conjunctivae normal Pupils: Equal, round and reactive pupils present and Pupil accommodation reflex normal Direct Ophthalmoscopy: normal light reflex Neck Neck: No lymphadenopathy Thyroid: Thyroid normal Chest Chest palpation & inspection: normal inspection of the chest Resp Effort & Inspection: normal respiratory effort and no audible wheezes Auscultation: clear to auscultation bilaterally, no crackles, no wheezes and lung sounds not diminished Cardio Rate: regular rate Rhythm: regular rhythm Peripheral pulses: radial pulses present and dorsalis pedis present GI Palpation (GI): no masses Auscultation: normal bowel sounds and normoactive bowel sounds Rectal Exam - Male: Yes deferred Skin General skin exam: no rashes or lesions noted Rashes: no rashes Neuro General: No confusion Cranial nerves: Yes Equal, round and reactive pupils present and Yes Normal hearing present Cognition (Neuro): normal cognition Gait exam (Neuro): Normal gait present Motor exam (neuro): 5/5 motor strength present throughout Deep tendon reflexes (DTR's): Right brachioradialis reflex intensity grade: 2+, Left brachioradialis reflex intensity grade: 2+, Right patellar reflex intensity grade: 2+ and Left patellar reflex intensity grade: 2+ Extrem General: No edema Immunizations Boostrix Tdap 2.5 Lf unit-8 mcg-5 Lf/0.5 mL intramuscular syringe Performing Provider: Froilan Starkey MD [place] [facility] [place] [facility] Administered by: Meera Velázquez CMA on 02/01/25 16:29 Dose Route Admin Location Dispensed Lot Number Expiration Date [facility] Center Punch Operator 0.5 mL IM Left Deltoid 0.5 mL [id number] 04/08/27 [id number] [facility] Total Dispensed Waste 0.5 mL 0 % VIS Given Date VIS Provided VIS Publication Date 02/01/25 Single Vaccine 20 Eligibility Eligibility Date Funding Source Not [facility] Eligible 02/01/25 Private Coding Level of Care Code Est Pt Prev Care 40-64y(37351) Diagnoses Annual physical exam Z00.00 Erectile dysfunction N52.9 Balanitis N48.1 Obesity (BMI 30.0-34.9) E66.9 Impaired fasting blood sugar R73.01 Primary hypertension I10 Hypertension type: primary hypertension Assessment & Plan Assessment & Plan (1) Annual physical exam: Code(s): Z00.00 - Encounter for general adult medical examination without abnormal findings Category: Medical Plan: Patient is advised to eat healthy, keep well hydrated, keep active and have adequate sleep. (2) Erectile dysfunction: Code(s): N52.9 - Male erectile dysfunction, unspecified Category: Medical Plan: Patient was prescribed tadalafil under urology (3) Balanitis: Code(s): N48.1 - Balanitis Category: Medical Plan: Patient was given a cream clotrimazole/betamethasone twice a day for 1 month (4) Obesity (BMI 30.0-34.9): Code(s): E66.9 - Obesity, unspecified Category: Medical Plan: Diet and exercise (5) Impaired fasting blood sugar: Code(s): R73.01 - Impaired fasting glucose Category: Medical Plan: Decrease the amount of carbohydrate intake, pasta, bread, rice and potatoes are all sugar and that is aside from all the sweet stuff, remember that fruits are good but they are Sweet also. Blood work requested (6) Hypertension: Code(s): I10 - Essential (primary) hypertension Category: Medical Qualifiers: Hypertension type: primary hypertension Qualified Code(s): I10 - Essential (primary) hypertension Plan: Continue with blood pressure medication. Decrease salt intake and exercise patient on amlodipine 5 mg once a day atenolol 50 mg once a day Plan History of Present Illness The patient is a 49-year-old male presenting with a wellness examination and management of chronic conditions including hypertension and low testosterone. The patient has a history of obesity, with a recent weight loss of 7 pounds note d. He is currently managing hypertension with medications including amlodipine and atenolol. The patient has a history of low testosterone, for which he follows up with urology. He has been prescribed tadalafil for erectile dysfunction. The patient was previously treated for melanitis with clotrimazole and betamethasone cream. He reports no recurrence of symptoms since treatment. Family history is significant for heart disease, with his mother and two maternal uncles having had heart attacks. There is also a family history of stomach cancer on his paternal side. The patient reports occasional lower back pain, which has improved recently. He denies any recent falls or trauma. Health Maintenance - Colonoscopy performed in September 2023 - Blood work requested to monitor hemoglobin A1c and blood sugar levels - Tetanus vaccination planned Social History - Alcohol consumption: Drinks a bottle of wine on weekends, mostly on Saturdays - Smoking: Denies current smoking Review of Systems - Cardiovascular: Denies chest pain, syncope, or palpitations - Respiratory: Denies dyspnea or cough - Gastrointestinal: Denies nausea, vomiting, diarrhea, or constipation - Musculoskeletal: Reports lower back pain, improved recently - Neurological: Denies dizziness or headaches Physical Exam General: Cooperative, healthy appearing, comfortable, no acute distress and well developed Orientation: Patient oriented x3 Limitations: No limitations Head: Normal to inspection Ears: Hearing grossly normal bilaterally Nose: Normal external nose present Face and sinus: Normal facial exam Eyes: Appearance normal, both eyes and all related structures Neck: Normal visual inspection and Yes full ROM Respiratory: Normal respiratory effort and able to speak in complete sentences. Clear to auscultation bilaterally Cardiovascular: Regular rate and rhythm. Normal S1 and S2 GI: Normal to inspection. Soft to palpation and nontender Skin: No rashes or lesions noted Neuro: Patient oriented x3 Extremities: Normal to inspection Results - Labs: Hemoglobin A1c of 6.2 in July 2024 - Labs: LDL cholesterol of 107 mg/dL in January 2024 - Labs: Normal blood count and liver function in January 2024 - Labs: Normal PSA and thyroid function Plan Patient was informed and verbally consented to the use of an ambient scribe for clinic note documentation during this visit. 1. Essential Hypertension The patient is managing hypertension with amlodipine and atenolol, and blood pressure is reported to be well-controlled. Continued monitoring and adherence to medication are advised. 2. Obesity The patient has achieved a 7-pound weight loss, which is a positive step towards managing obesity. Diet and exercise modifications are encouraged to continue this trend. 3. Low Testosterone The patient is under urological care for low testosterone and has been prescribed tadalafil for erectile dysfunction. Follow-up on testosterone levels is recommended. 4. Melanitis The patient was treated with clotrimazole and betamethasone cream for melanitis, with no recurrence of symptoms reported. No further treatment is currently necessary unless symptoms recur. 5. Preventative Care A colonoscopy was performed in September 2023, and blood work is requested to monitor hemoglobin A1c and blood sugar levels. A tetanus vaccination is planned during this visit. Discussion Notes During the visit, I discussed the importance of managing hypertension and obesity through medication adherence and lifestyle modifications. We reviewed the patient's low testosterone management with tadalafil and the need for follow-up testing. Preventative care measures, including a recent colonoscopy and planned tetanus vaccination, were also discussed. Patient Instructions - Continue taking prescribed medications for hypertension as directed. - Maintain a healthy diet and exercise regularly to support weight loss. - Follow up with urology for testosterone management and testing. - Schedule and complete blood work as requested to monitor blood sugar levels. - Receive a tetanus vaccination during this visit. Orders: Orders Testosterone, Total Today N52.9 - Male erectile dysfunction, unspecified, R79.89 - Other specified abnormal findings of blood chemistry TDaP Immunization Today Z23 - Encounter for immunization Prostate Specific Antigen Today N52.9 - Male erectile dysfunction, unspecified
--- OUTSIDE RECORDS SUMMARY | 2025-02-01 21:10 | XMS_ITS | Clinical Summary ---
Author Organization [employer] Address [address] [place] [address] Care Team Providers Care Chicken Raiser Name Role Phone Unavailable Primary Care Provider [...] 3-dose series) 1993 Tobacco Screening 05/22/2023 05/22/2022 Pneumococcal Vaccine: 50+ Ye ars (1 of 1 - PCV) 2024 Zoster Vaccines (1 of 2) 2024 COVID-19 Vaccine (1 - 2023-2 5 season) 2025 Influenza Vaccine (#1) 2025 03/14/2023 RSV Patients [...] patient's age to complete this topic Insurance [id number] [id number]
--- OUTSIDE RECORDS SUMMARY | 2025-02-01 21:10 | XMS_ITS | Encounter Summary ---
Author Organization [employer] [facility] Address [address] [place] [address] Care Team Providers Care Health Safety Coordinator Name Role Phone Unavailable Primary Care Provider Unavailabl e Reason for Visit * Reason Comments Med Refill Encounter Details Date Type Department Care Team (Late st Contact Info) Description 07/13/2022 Refill [facility] [address] [place], [place] [phone] Devendra Isaac MD [address] [place] [address] Hypertension, unspecified type Social History Tobacco Use [...]
== END 2025-02-01 16:38 | disposition home or self-care (01) ==
LOC: HO.HMCH 15:52
PROVIDERS: PCP Internal Medicine; Visit Provider Internal Medicine
DX: Z00.00 Encounter for general adult medical examination without abnormal findings (principal); N52.9 Male erectile dysfunction, unspecified; N48.1 Balanitis; Z68.31 Body mass index [BMI] 31.0-31.9, adult; E66.9 Obesity, unspecified; R73.01 Impaired fasting glucose; I10 Essential (primary) hypertension; Z23 Encounter for immunization

== ENCOUNTER 2025-02-02 10:14 | Outpatient (REF) | payer OTHER, SELFPAY ==
[2025-02-02 10:23] LABS: MANUAL DIFF FLAG NO
[2025-02-02 10:40] LABS: Hematocrit 47.5 % (42.0-52.0); Hemoglobin 15.3 g/dl (14.0-18.0); Imm Gran Abs Auto 0.02 X10*3/uL (0.00-0.03); Imm Gran Pct Auto 0.3 % (0.0-0.4); Lymphocytes Absolute Auto 2.7 X10*3/uL (1.2-4.9); Mean Corpuscular HGB Conc 32.2 g/dl (31.0-36.0); Mean Corpuscular Hemoglobin 27.0 pg (27.0-33.0); Mean Corpuscular Volume 83.8 fL (80.0-98.0); NRBC Abs Auto 0.000 X10*3/uL (0.0-0.012); NRBC Pct Auto 0.0 /100WBC (0.0-0.2); Platelet Count 256 X10*3/uL (160-400); Red Blood Count 5.67 X10*6/uL (4.60-5.80); White Blood Count 7.2 X10*3/uL (4.8-10.8)
[2025-02-02 10:44] LABS: Hemoglobin A1C 165.6366 umol/L; Total Hemoglobin (HGBA1C) 3970.9494 umol/L
[2025-02-02 12:07] LABS: Folate 6.5 ng/mL (> or = 4.0); Prostate Specific Antigen 0.81 ng/mL (<0.05-4.0); Vitamin B12 696 pg/mL (200-900)
[2025-02-02 12:19] LABS: Alanine Aminotransferase 40 U/L (0-40); Albumin Level 4.8 g/dL (3.5-5.0); Alkaline Phosphatase 64 U/L (39-117); Anion Gap 12 (12-20); Aspartate Amino Transferase 27 U/L (5-37); Blood Urea Nitrogen 16 mg/dL (9-16); Calcium 9.9 mg/dL (8.4-10.2); Carbon Dioxide 28 mmol/L (22-29); Chloride 108 mmol/L (96-108); Cholesterol 205 mg/dL (<200); Estimated Glomerular Filt Rate > 60; HDL Cholesterol 45 mg/dL (>40); Potassium 5.3 mmol/L (3.3-5.1); Sodium 143 mmol/L (135-145); Total Protein 8.3 g/dL (6.5-8.0); Triglycerides 80 mg/dL (<150)
[2025-02-02 12:24] LABS: Free T4 (Free Thyroxine) 1.01 ng/dL (0.71-1.85); Thyroid Stimulating Hormone 1.45 uIU/mL (0.32-4.0)
== END 2025-02-02 10:15 | disposition home or self-care (01) ==
LOC: HO.LAB 10:14
PROVIDERS: PCP Internal Medicine; Visit Provider Internal Medicine
DX: R73.01 Impaired fasting glucose (principal); R79.89 Other specified abnormal findings of blood chemistry; N52.9 Male erectile dysfunction, unspecified; E78.00 Pure hypercholesterolemia, unspecified
CPT/HCPCS: 36415; 80053; 80061; 82607; 82746; 83036; 84153; 84403; 84439; 84443; 85025